=== PATIENT | female | born 1975 | race Caucasian/White ===

== ENCOUNTER → 2018-01-04 09:04 | Outpatient (CLI) | payer BC, SELFPAY ==
[2018-01-04 10:36] LABS: Microalbumin,Random Urine 34.5 mg/L (NO RANGE EST.); Microalbumin:Creatinine Ratio 14.7 mg/g CRE (<30 mg/g CRE)
[2018-01-04 10:58] LABS: ALB/GLOB Ratio 0.9 RATIO (0.9-2.4); AST(SGOT) 45 U/L (15-37); Alanine Aminotransfer ALT/SGPT 60 U/L (13-56); Albumin, Serum 3.9 g/dL (3.2-5.0); Alkaline Phosphatase 107 U/L (45-117); Anion Gap 8 (5-15); BUN 10 mg/dL (7-18); BUN/Creat Ratio 10.2 RATIO (10-20); Calcium,Total 8.7 mg/dL (8.5-10.1); Chloride 104 mmol/L (98-107); Cholesterol 216 mg/dL (200); Creatinine, Serum 0.98 mg/dL (0.55-1.02); EST Glomerular Filtration Rate 66 mL/min (>60); Est Glom Filt Rate - Afr Amer 79 mL/min (>60); Globulin 4.4 g/dL (2.2-4.2); Glucose 126 mg/dL (74-106); High Density Lipoprotein 32 mg/dL; Potassium 3.7 mmol/L (3.5-5.1); Protein, Total 8.3 g/dL (6.4-8.2); Sodium Level 138 mmol/L (136-145); T4 Free Direct 0.92 ng/dL (0.76-1.46); Thyroid Stim Hormone (TSH) 2.66 uIU/mL (0.358-3.74); Triglycerides 229 mg/dL; Very Low Density Lipoprotein 46 mg/dL (5-40)
== END ==
PROVIDERS: Family Provider Family Medicine; PCP Family Medicine; Visit Provider Family Medicine
DX: I10 Essential (primary) hypertension (principal); E03.9 Hypothyroidism, unspecified
CPT/HCPCS: 36415; 80053; 80061; 82043; 82570; 84439; 84443

== ENCOUNTER 2018-03-29 08:46 | Emergency (ER) | payer BC, SELFPAY ==
[2018-03-29 08:47] VITALS: BP 166/105; PULSE 93; RESP 18; TEMP 37; O2SAT 99; BMI 45.4
--- NOTE | 2018-03-29 09:00 | EKG12_ITS ---
Test Reason : CHEST OTHER Blood Pressure : / mmHG Vent. Rate : 078 BPM Atrial Rate : 078 BPM P-R Int : 148 ms QRS Dur : 094 ms QT Int : 394 ms P-R-T Axes : 019 -36 -03 degrees QTc Int : 449 ms Normal sinus rhythm Left axis deviation ,LAHB Abnormal ECG Confirmed by RAYMOND LUQUE ([id number]), supervising editor trailer REAGAN SMITH ([id number]) on 04/02/2018 2:30:13 PM Referred By: GERALDINE Confirmed By:RAYMOND LUQUE
--- NOTE | 2018-03-29 09:00 | ED.VISSUMM ---
- ER Visit Summary Date of Service: 03/29/18 Chief Complaint: Numbness and tingling left arm, reflux History of Present Illness: The patient is a 42 F who states for the past 2 weeks she has had numbness and tingling of the left arm. It goes from the shoulder all the way down. She saw her primary care doctor on Sunday this week but did not mention it to him. She has taken nothing for it. Over the past 2 days she has had reflux with burning and a brash taste in the back of her mouth. She has some intermittent dull pains in her chest. She denies any fevers. No neck pain. Physical Examination: Vital signs reviewed. HEENT exam unremarkable. Spine is nontender. Heart is regular rate and rhythm without murmurs. Lungs are clear to auscultation. Abdomen is soft and nontender. Extremities reveal no edema. Skin exam normal. Neurologic exam normal. Test Results: EKG is normal sinus rhythm with a rate of 78. No ST changes. Emergency Department Course and Treatment: Patient will be given a GI cocktail here. No signs of any cardiac issues. She may have a little bit of radiculopathy causing the paresthesias. Patient will be treated with prednisone at home. Also give her Prilosec. She will follow up with her PCP Treatment Plan: [] Disposition: Discharge Impression: GERD, left arm paresthesias This note was generated with Player[employer] dictation software. It may contain incorrect words, spelling, and punctuation that were not noted in review of the chart prior to signing ED Disposition - Plan for ED Patient: Chief Complaint: Chest Other Referrals: Pk Amor MD [Primary Care Provider] -
--- NOTE | 2018-03-29 09:12 | NURSING ---
NO OLD EKGS
--- NOTE | 2018-03-29 09:27 | ED.DEP ---
ED Disposition - Plan for ED Patient: Disposition: Home or Assisted Living Chief Complaint: Chest Other Instructions: ED GERD, ED Paraesthesias Prescriptions: Omeprazole [Prilosec] 20 mg PO DAILY #30 cap Prednisone [Deltasone] 40 mg PO DAILY #10 tab Referrals: Pk Amor MD [Primary Care Provider] -
[2018-03-29] MEDS: Mag Hydrox/Al Hydrox/Simeth 30 ML UDC PO (09:37)
[2018-03-29 10:01] VITALS: BP 128/77; PULSE 61; RESP 15; O2SAT 97
== END 2018-03-29 10:03 | disposition home or self-care (01) ==
PROVIDERS: Emergency Provider Emergency Medicine; Family Provider Family Medicine; PCP Family Medicine
DX: K21.9 Gastro-esophageal reflux disease without esophagitis (principal); R20.2 Paresthesia of skin; Z86.79 Personal history of other diseases of the circulatory system; Z86.39 Personal history of other endocrine, nutritional and metabolic disease
CPT/HCPCS: 93005; 99283

== ENCOUNTER → 2018-04-22 11:33 | Outpatient (CLI) | payer BC, SELFPAY ==
[2018-04-22 14:19] LABS: Hemoglobin A1c 6.8 % (4.2-6.3)
[2018-04-22 14:20] LABS: ALB/GLOB Ratio 0.9 RATIO (0.9-2.4); AST(SGOT) 33 U/L (15-37); Alanine Aminotransfer ALT/SGPT 53 U/L (13-56); Albumin, Serum 3.6 g/dL (3.2-5.0); Alkaline Phosphatase 110 U/L (45-117); Anion Gap 8 (5-15); BUN 12 mg/dL (7-18); BUN/Creat Ratio 12.5 RATIO (10-20); Calcium,Total 8.9 mg/dL (8.5-10.1); Chloride 101 mmol/L (98-107); Cholesterol 231 mg/dL (200); Creatinine, Serum 0.96 mg/dL (0.55-1.02); EST Glomerular Filtration Rate 68 mL/min (>60); Est Glom Filt Rate - Afr Amer 82 mL/min (>60); Glucose 105 mg/dL (74-106); High Density Lipoprotein 38 mg/dL; Potassium 3.9 mmol/L (3.5-5.1); Protein, Total 7.6 g/dL (6.4-8.2); Sodium Level 139 mmol/L (136-145); Triglycerides 217 mg/dL; Very Low Density Lipoprotein 43 mg/dL (5-40)
== END ==
PROVIDERS: Family Provider Family Medicine; PCP Family Medicine; Referring Provider Family Medicine; Visit Provider Family Medicine
DX: E78.00 Pure hypercholesterolemia, unspecified (principal); R74.0 Nonspecific elevation of levels of transaminase and lactic acid dehydrogenase [LDH]; I10 Essential (primary) hypertension
CPT/HCPCS: 36415; 80053; 80061; 83036

== ENCOUNTER → 2018-06-25 14:21 | Outpatient (CLI) | payer BC, SELFPAY ==
--- NOTE | 2018-06-25 14:30 | MRI_ITS ---
STUDY: MRI BRAIN WITH AND WITHOUT CONTRAST REASON FOR EXAM: Female, 42 years old. Optic neuritis, headache and visual changes right TECHNIQUE: Standardized multiplanar fat and water weighted pulse sequences were obtained. 10 ml of Gadavist contrast material was administered intravenously for the contrast portion of the examination. Small [id number] high-resolution images of the orbits were also obtained. COMPARISON: None. FINDINGS: Normal size of the ventricles and extra-axial spaces for the patient's age. Normal white matter tracts of the supratentorial brain. There is no evidence for recent intracranial ischemia or other cause of cytotoxic edema on diffusion weighted imaging (DWI). The optic nerve on the right appears slightly larger and somewhat ill-defined demonstrating slight T2 lengthening and possible enhancement. The optic chiasm and tracts appear normal. The globes appear normal as are the retrobulbar structures otherwise. There are prominent perivascular spaces (PVS) involving the basal ganglia. Normal thalami. There is no extra-axial fluid accumulation. Normal flow voids within the major intracranial circulation suggesting patency by spin echo criteria. Normal venous enhancement. There is no enhancing intra-axial or extra-axial abnormality. Normal sella turcica, pituitary gland, infundibular stalk, optic chiasm and hypothalamus. Normal tectal plate and pineal gland. Normal midbrain, layton and medulla. Normal cerebellum. Normal basal cisterns. Normal bilateral temporal bones. Normal bilateral internal auditory canals. No demonstrated orbital abnormality, within the constraints of a routine brain study. Normal visualized paranasal sinuses. Normal calvarium and skull base. Normal visualized soft tissue structures. Normal visualized upper cervical spine. MRI/Brain W/WO Contrast IMPRESSION: Probable optic neuritis on the right otherwise unremarkable MR brain and orbits Electronically Signed: Beto Forman MD at 16:11 EST , Service support ,
== END ==
PROVIDERS: Family Provider Family Medicine; PCP Family Medicine; Referring Provider Family Medicine; Visit Provider Family Medicine
DX: H46.00 Optic papillitis, unspecified eye (principal)
CPT/HCPCS: 70553; A9585

== ENCOUNTER → 2018-06-26 14:34 | Outpatient (CLI) | payer BC, SELFPAY ==
[2018-06-26 14:48] VITALS: BP 139/89; PULSE 77; RESP 16; TEMP 36.6; O2SAT 96; BMI 41.8
[2018-06-26 15:57] LABS: AST(SGOT) 28 U/L (15-37); Alanine Aminotransfer ALT/SGPT 38 U/L (13-56); Alkaline Phosphatase 85 U/L (45-117); Anion Gap 8 (5-15); BUN 15 mg/dL (7-18); BUN/Creat Ratio 14.9 RATIO (10-20); CRP 5.73 mg/L (0.0-3.0); Calcium,Total 9.2 mg/dL (8.5-10.1); Chloride 104 mmol/L (98-107); Creatinine, Serum 1.01 mg/dL (0.55-1.02); EST Glomerular Filtration Rate 64 mL/min (>60); Est Glom Filt Rate - Afr Amer 77 mL/min (>60); Estimated Creatinine Clearance 62.66 ml/min; Globulin 3.9 g/dL (2.2-4.2); Glucose 80 mg/dL (74-106); Potassium 4.2 mmol/L (3.5-5.1); Protein, Total 7.9 g/dL (6.4-8.2); Sodium Level 139 mmol/L (136-145)
[2018-06-26 16:20] LABS: Absolute Lymphocyte Count 2.76 X10^3/ul (0.83-4.51); Basophil# 0.03 X10^3/uL; Basophil% 0.3 % (0-1); Eosinophil# 0.28 X10^3/uL; Eosinophils% 2.4 % (0-5); Hematocrit 45.9 % (37-47); Hemoglobin 15.1 g/dl (12.0-15.0); Lymphocyte # 2.76 X10^3/ul (4.0); Lymphocyte % 23.6 % (19-41); Mean Corp Hgb Conc 32.9 g/gl (32-36); Mean Corpuscular Volume 88.1 fL (81-99); Mean Platelet Vol. 10.2 fl (6.2-12.0); Monocyte# 0.56 X10^3/uL; Monocyte% 4.8 % (0-10); Neutrophil # 8.03 X10^3/uL (2.7-7.7); Neutrophil % 68.7 % (47-70); Platelet Count 311 K/mm3 (150-450); RBC Distribution Width CV 12.9 % (11.6-14.6); Red Blood Count 5.21 M/mm3 (4.2-5.4); White Blood Count 11.7 K/mm3 (4.4-11.0)
[2018-06-26 16:38] LABS: POSITIVE COUNT NO; POSITIVE DIFFERENTIAL NO; POSITIVE MORPHOLOGY NO
[2018-06-26 16:48] LABS: Erythrocyte Sedimentation Rate 21 mm/hr (0-20)
[2018-06-27 20:06] LABS: PROELU- Albumin, Urine 52.5 % (.); PROELU- Alpha-1-Globulin,Ur 2.3 % (.); PROELU- Beta Globulin, Ur 19.6 % (.); PROELU- Gamma Globulin, Ur 10.6 % (.)
[2018-06-28 19:07] LABS: PROEL- A/G Ratio 1.1 (0.7-1.7); PROEL- Albumin 3.9 g/dL (2.9-4.4); PROEL- Alpha-1 Globulin 0.2 g/dL (0.0-0.4); PROEL- Alpha-2 Globulin 0.5 g/dL (0.4-1.0); PROEL- Gamma Globulin 1.1 g/dL (0.4-1.8); PROEL- Globulin, Total 3.7 g/dL (2.2-3.9); PROEL- TOTAL PROTEIN 7.6 g/dL (6.0-8.5)
== END ==
PROVIDERS: Family Provider Family Medicine; PCP Family Medicine; Visit Provider Family Medicine
DX: H46.9 Unspecified optic neuritis (principal)
CPT/HCPCS: 96365; 80053; 84165; 84166; 85025; 85652; 86140; J7050; A4216; J2930

== ENCOUNTER → 2018-06-27 12:22 | Outpatient (CLI) | payer BC, SELFPAY ==
[2018-06-26 14:48] VITALS: BMI 41.8
[2018-06-27 12:38] VITALS: BP 150/89; PULSE 91; RESP 18; TEMP 37.4; O2SAT 95; BMI 41.8
== END ==
PROVIDERS: Family Provider Family Medicine; PCP Family Medicine; Referring Provider Family Medicine; Visit Provider Family Medicine
DX: H46.9 Unspecified optic neuritis (principal)
CPT/HCPCS: J7050; A4216; J2930

== ENCOUNTER → 2018-06-28 10:28 | Outpatient (CLI) | payer BC, SELFPAY ==
[2018-06-26 14:48] VITALS: BMI 41.8
[2018-06-27 12:38] VITALS: BMI 41.8
[2018-06-28 10:58] LABS: Lyme Ab Screen Interpretation REF LAB
[2018-06-28 11:07] VITALS: BP 134/79; PULSE 83; RESP 16; TEMP 37.2; O2SAT 95; BMI 40.7
[2018-06-28 14:50] LABS: Vitamin B12 285 pg/mL (211-911); Vitamin D,25 Hydroxy 10.5 ng/mL (29.95-100.01)
[2018-07-01 20:11] LABS: Angiotensin Convert Enzyme 17 U/L (14-82); Cytoplasmic Ab (C-ANCA) <1:20 titer (Neg:<1:20); SJOGREN'S Anti-SS-A test < 0.2 AI (0.0-0.9); SJOGREN'S Anti-SS-B test < 0.2 AI (0.0-0.9)
[2018-07-02 09:08] LABS: ANTINUCLEAR ANTIBODIES DIRECT Negative (Negative); Lyme Scn Total Ab w/Rflx <0.91 ISR (0.00-0.90); Perinuclear Ab (P-ANCA) <1:20 titer (Neg:<1:20)
== END ==
PROVIDERS: Psychiatry & Neurology Neurology; Family Provider Family Medicine; PCP Family Medicine; Referring Provider Family Medicine; Visit Provider Family Medicine
DX: H46.9 Unspecified optic neuritis (principal)
CPT/HCPCS: 96365; 36415; 82164; 82306; 82607; 86038; 86235; 86256; 86431; 86618; J7050; A4216; J2930

== ENCOUNTER 2018-06-29 10:30 | Outpatient (CLI) | payer BC, SELFPAY ==
[2018-06-27 12:38] VITALS: BMI 41.8
[2018-06-28 11:07] VITALS: BMI 40.7
[2018-06-29 10:52] VITALS: BP 146/98; PULSE 71; RESP 16; TEMP 37.2; O2SAT 97
[2018-06-29] MEDS: 0.9% NaCl Peripheral Flush Adult/Peds IV ×2 (10:55→12:32)
== END 2018-06-29 12:35 | disposition home or self-care (01) ==
LOC: MEDOUTP 10:30 → MS3 10:35
PROVIDERS: Family Provider Family Medicine; PCP Family Medicine; Referring Provider Family Medicine; Visit Provider Family Medicine
DX: Z45.2 Encounter for adjustment and management of vascular access device (principal)
CPT/HCPCS: 96365; A4216; J2930

== ENCOUNTER 2018-06-30 10:40 | Outpatient (CLI) | payer BC, SELFPAY ==
[2018-06-27 12:38] VITALS: BMI 41.8
[2018-06-28 11:07] VITALS: BMI 40.7
[2018-06-30 10:56] VITALS: BP 148/83; PULSE 74; RESP 18; TEMP 36.9; O2SAT 95
== END 2018-06-30 12:50 | disposition home or self-care (01) ==
LOC: MEDOUTP 10:40 → PCU 10:41
PROVIDERS: Family Provider Family Medicine; PCP Family Medicine; Referring Provider Family Medicine; Visit Provider Family Medicine
DX: H46.9 Unspecified optic neuritis (principal)
CPT/HCPCS: 96365; J2930

== ENCOUNTER → 2018-07-08 15:29 | Outpatient (CLI) | payer BC, SELFPAY ==
[2018-06-28 11:07] VITALS: BMI 40.7
--- NOTE | 2018-07-08 15:34 | MRI_ITS ---
STUDY: MRI CERVICAL SPINE WITH AND WITHOUT CONTRAST REASON FOR EXAM: Female, 42 years old. optic neuritis rt eye, muscle spasms, numbness left arm TECHNIQUE: Standardized fat and water weighted pulse sequences were obtained in the sagittal and axial following I.V. administration of 10 ml of Gadavist contrast material. COMPARISON: MRI of the thoracic spine July 08, 2018, MRI of the brain with and without contrast June 25, 2018 FINDINGS: Normal foramen magnum and brainstem-cervical cord junction. Normal craniovertebral junction. Normal anterior atlantoaxial articulation. Normal odontoid process. There is mild reversal the normal cervical lordosis. Vertebral body height is maintained. Mild degenerative endplate changes are noted. Bone marrow signal intensity is normal. C2-3: Normal endplates. Normal disc height, signal and morphology. Normal central canal and intervertebral neural foramina. C3-4: Normal endplates. Normal disc height, signal and morphology. Normal central canal and intervertebral neural foramina. C4-5: Small marginal osteophytes noted. There is uncovertebral joint hypertrophy bilaterally. Disc osteophyte complex with herniation that extends inferior to the C5 endplate demonstrates mild impression upon the ventral thecal sac asymmetric to the left with cervical cord contour abnormality but there is no evidence of significant central canal stenosis. AP diameter of the thecal sac measures 0.9 cm. Disc protrudes into the left neural foramen with severe left neural foraminal encroachment. The right neural foramen demonstrates mild encroachment. C5-6: Degenerative disc desiccation is noted. There is broad posterior disc osteophyte complex asymmetric to the right with uncovertebral joint hypertrophy. There is flattening of the ventral aspect of the thecal sac and cervical cord contour. AP diameter of the thecal sac is approximately 9 mm, a mild relative stenosis. There is mild to moderate encroachment upon the left neural foramen and right neural foramen. C6-7: Disc desiccation is noted. There is broad posterior paracentral disc bulging which mildly flattens ventral aspect of the thecal sac. AP diameter of the thecal sac is approximately 1 cm. There is no evidence of significant central canal stenosis. There does appear mild encroachment upon the neural foramina bilaterally. C7-T1: Posterior disc osteophyte complex demonstrates right paracentral asymmetry mildly distorting the contour of the thecal sac. There is no evidence of significant central canal stenosis. The neural foramina are patent. Normal cervical cord. No evidence of cord signal abnormality. No abnormal enhancement of the cervical cord. Normal visualized soft tissue structures. Incidental note made of prominent fluid in the sella consistent with that of diaphragmatic defect, empty sella. MRI/Spine Cervical W/WO Contrast IMPRESSION: * Degenerative spondylosis of the cervical spine. The most severe level is at C4-5 where disc herniates and protrudes into the left neural foramen with associated severe left neural foraminal encroachment. See above for details. * The cervical cord demonstrates no evident signal abnormality. There is no evidence of demyelination. No abnormal enhancement. Electronically Signed: Bettye Plasencia MD at 13:59 EST , Service support ,
--- NOTE | 2018-07-08 15:34 | MRI_ITS ---
STUDY: MRI THORACIC SPINE WITH AND WITHOUT CONTRAST REASON FOR EXAM: Female, 42 years old. MS optic neuritis rt eye, muscle spasms, numbness left arm TECHNIQUE: 10 ml of Gadavist was administered intravenously for the contrast portion of the examination. COMPARISON: MRI brain with and without contrast June 25, 2018 FINDINGS: Normal kyphosis of the thoracic spine. There is mild midthoracic dextroscoliosis. T1-2, T2-3, T3-4, T4-5, T5-6, T6-7, T7-8, T8-9, T9-10, T10-11, T11-12: Normal endplates. Normal disc hydration, heights and morphology of the corresponding intervertebral discs. Normal central canal and intervertebral neural foramina at the corresponding levels. Normal visualized thoracic cord. Normal conus medullaris that terminates at the . The soft tissue structures are unremarkable. There is no enhancing abnormality. MRI/Spine Thoracic W/WO Contrast IMPRESSION: Normal unenhanced and enhanced MRI examination of the thoracic spine. Mild midthoracic dextroscoliosis. No signs of demyelinating process on this exam. Another possible etiologies of optic neuritis that may be considered could include immune disease such as lupus. Again on this exam I see no signs of demyelinating disease such as multiple sclerosis, although multiple sclerosis still remains in the differential since it may be a first indication of disease. Electronically Signed: Bettye Plasencia MD at 13:31 EST , Service support ,
--- OUTSIDE RECORDS SUMMARY | 2018-10-10 08:02 | XMS RPT_ITS ---
:1975 Author Organization OHIP Support Name Relationship Address Phone [facility] Unavailable [address] + [place] [address] RETA, NAN Unavailable [address] + [place] [address] [facility] Unavailable [address] + [place] [phone] RETA, NAN Unavailable [address] + [place] [address] [facility] Unavailable [address] + [place] [address] RETA, NAN Unavailable [address] + [place] [address] [facility] Unavailable [address] + [place] [address] RETA, NAN Unavailable [address] + [place] [address] [facility] Unavailable [address] + [place] [address] RETA, NAN Unavailable [address] + [place] [address] [facility] Unavailable [address] + [place] [address] RETA, NAN Unavailable [address] + [place] [address] [facility] Unavailable [address] + [place] [address] RETA, NAN Unavailable [address] + [place] [address] [facility] Unavailable [address] + [place] [phone] RETA, NNA Unavailable [address] + [place] [address] [facility] Unavailable [address] + [place] [address] RETA, NAN Unavailable [address] + [place] [address] [facility] Unavailable [address] + [place] [address] RETA, NAN Unavailable [address] + [place] [address] [facility] Unavailable [address] + [place] [address] RETA, NAN Unavailable [address] + [place] [address] [facility] Unavailable [address] + [place] [address] RETA, NAN Unavailable [address] + [place] [address] [facility] Unavailable [address] + [place] [address] RETA, NAN Unavailable [address] + [place] [address] [facility] Unavailable [address] + [place] [phone] RETA, NAN Unavailable [address] [phone] [place] [address] Care Team Providers Name Role Phone Tana Gamble Attending Unavailable Tana Gamble Referring Unavailable Amor, Pk Primary Care Unavailable Tana Gamble Attending Unavailable Tana Gamble Referring Unavailable Amor, Pk Primary Care Unavailable Amor, Pk Attending Unavailable Amor, Pk Referring Unavailable Amor, Pk Primary Care Unavailable Amor, Pk Primary Care Unavailable Sky Lopez Attending Unavailable Amor, Pk Attending Unavailable Amor, Pk Referring Unavailable Amor, Pk Primary Care Unavailable Liu Zimmerman Attending Unavailable Liu Zimmerman Referring Unavailable Amor, Pk Primary Care Unavailable Amor, Pk Attending Unavailable Amor, Pk Referring Unavailable Amor, Pk Primary Care Unavailable Amor, Pk Attending Unavailable Amor, Pk Primary Care Unavailable Amor, Pk Attending Unavailable Amor, Pk Primary Care Unavailable Amor, Pk Attending Unavailable Amor, Pk Referring Unavailable Amor, Pk Primary Care Unavailable Amor, Pk Attending Unavailable Amor, Pk Referring Unavailable Amor, Pk Primary Care Unavailable Amor, Pk Attending Unavailable Amor, Pk Referring Unavailable Amor, Pk Primary Care Unavailable Amor, Pk Attending Unavailable Amor, Pk Referring Unavailable Amor, Pk Primary Care Unavailable Radha Nunez Attending Unavailable Amor, Pk Primary Care Unavailable PROBLEMS PROBLEMS DATE TYPE CONDITION / CODE ATTENDING STATUS SOURCE 07/26/2018 Unknown H46.9 - Unspecified Tye, Active [place] optic neuritis / [facility] H46.9(ICD-10) Hospital Repository 04/22/2018 Unknown E78.00 - Pure Amor, Pk Active [place] hypercholesterolemi Community a, unspecified / Hospital E78.00(ICD-10) Repository 04/22/2018 Unknown R74.0 - Nonspecific Amor, Pk Active [place] elevation of levels [facility] transaminase and Hospital lactic acid Repository dehydrogenase [LDH] / R74.0(ICD-10) PROCEDURES PROCEDURES No Procedure Records FoundRESULTS RESULTS SPINAL FLUID CELL Collected: 07/12/2018 Status: C Source: [place] COUNT+DIFF 11:05 AM [facility] HOSPITAL REPOSITORY TYPE CODE TESTS RESULT OUT OF RANGE REFERENCE UNITS LAB L200.2695 0.000-0.000 10 3/uL High TC CSF 0.001 Result Comment: This is the Total Number of Nucleated Cell Types in the Body Fluid. LAB L200.2750 0.000-0.000 10 3/uL High WBC,CSF 0.001 LAB L200.3000 Normal PATH REV Reviewed Result Comment: Acellular specimen. Huy Alexander M.D. 07/15/18 AMENDED REPORT 07/15/18 0959 PATH REV previously reported as: November follow LAB L200.3510 % BF Normal PMN WBC% 0.0 LAB L200.3515 % BF MN Normal WBC% 100.0 LAB L200.3520 10 3/uL BF MN Normal WBC# 0.001 LAB L200.3525 10 3/uL BF Normal PMN WBC# 0.000 LAB L200.2500 4 Normal TESTED TUBE # LAB L200.2600 Colorless CSF Normal Color COLORLESS LAB L200.2650 Clear Normal APPEARANCE CSF CLEAR LAB L200.2700 None seen /mm-3 0 Normal RBC,CSF Performed By: #### L200.0100 #### [facility] [address] [place], [address] GLUCOSE SPINAL FLUID Collected: 07/12/2018 Status: F Source: [place] 11:05 AM [facility] REPOSITORY Order Comment: Comments: #[id number] EBV PCR CSF Specimen Source? CSF TYPE CODE TESTS RESULT OUT OF RANGE REFERENCE UNITS LAB L501.0400 40-75 mg/dL Normal GLU SPINAL 61 FLD Performed By: #### L501.0400, L501.1600 #### [facility] [address] [place], [address] PROTEIN SPINAL FLUID Collected: 07/12/2018 Status: F Source: [place] 11:05 [facility] REPOSITORY Order Comment: Comments: #[id number] EBV PCR CSF Specimen Source? CSF TYPE CODE TESTS RESULT OUT OF RANGE REFERENCE UNITS LAB L501.1600 15.0-45.0 mg/dL Normal PROTEIN CSF 27.0 Performed By: #### L501.0400, L501.1600 #### [facility] [address] [place], [address] Observed: 07/12/2018 Status: F Source: [place] GRAM STAIN 11:05 [facility] REPOSITORY Gram Stain Centrifuged Specimen? Culture performed on centrifuged specimen Gram Stain No organisms seen No cells seen Performed By: #### M100.2000 #### [facility] [address] [place], [address] CYTOSPIN ON FLUID Observed: 07/12/2018 Status: F Source: [place] 11:05 [facility] REPOSITORY Patient: AMIE BARAJAS : 1975 (42/F) Acct Num: [id number] Phys: Tye RICCI[facility] Unit Num: [id number] Loc: RAD Specimen: [id number] Received: 07/12/18 - 1211 Spec Type: CYSPIN FL TISSUES 1 TISSUES: Cerebrospinal Fluid CYTOLOGY GROSS Received is 3 ml of clear colorless fluid labeled with the patient's name and and designated per the requisition as CSF. Submitted for cytology preparation. / 07/12/18 TC:4 CPT: 45427 CYTOLOGY STUDY Slides are reviewed. The specimen is paucicellular and consists of a few lymphocytes and monocytes. DIAGNOSIS CYTOLOGY Cerebrospinal fluid for cytology (cytospin): Negative for malignant cells. SJ:kristen 07/15/18 HEADER OPERATION: Lumbar puncture PRE-OP DIAGNOSIS: Possible MS TISSUE SUBMITTED: Cerebrospinal fluid for cytology Signed Huy Alexander MD 07/15/18 <signature on file> Performed By: #### PCYSPIN #### [facility] [address] [place], [address] CYTOLOGY, BODY FLUID / Collected: 07/12/2018 Status: F Source: [place] CSF 11:05 AM [facility] REPOSITORY Order Comment: Specimen Source: CSF TYPE CODE TESTS RESULT OUT OF RANGE REFERENCE UNITS LAB L350.1000 SEE Normal PATHOLOGY CYTOLOGY,BF REPORT /CSF Result Comment: Specimen submitted to Anatomical Pathology Department for testing. Performed By: #### L350.1000 #### [facility] [address] [place], [address] MYELIN BASIC PROTEIN, Collected: 07/12/2018 Status: F Source: [place] MBP 11:05 AM [facility] REPOSITORY TYPE CODE TESTS RESULT OUT OF REFERENCE UNITS RANGE LAB L804.2600 0.0-1.2 ng/mL High MBP 243196 2.0 Result Comment: Results for this test are for research purposes only by the assay's geospatial image analyst. The performance characteristics of this product have not been established. Results should not be used as a diagnostic procedure without confirmation of the diagnosis by another medically established diagnostic product or procedure. Performed By: #### L804.2600, L3400.1525, L3400.1645 #### [facility] (refer to report for specific site) refer to report for address and phone number CMV BY PCR Collected: 07/12/2018 Status: F [facility] TYPE CODE TESTS RESULT OUT OF RANGE REFERENCE UNITS LAB L3400.1525 Negative Normal CMV PCR Negative [id number] Result Comment: No Cytomegalovirus DNA Detected. This test was developed and its performance characteristics determined by [employer]. It has not been cleared or approved by the Food and Drug Administration. The FDA has determined that such clearance or approval is not necessary. Performed at: [address] [id number] Senior Drupal Developer: Pato Ruby MD, Phone: [phone] Performed By: #### L804.2600, L3400.1525, L3400.1645 #### [facility] (refer to report for specific site) refer to report for address and phone number HSV 1/2 BY PCR Collected: 07/12/2018 Status: F Source: [place] 11:05 AM [facility] REPOSITORY TYPE CODE TESTS RESULT OUT OF RANGE REFERENCE UNITS LAB L3400.1650 Negative Normal HSV 1 Negative BY PCR LAB L3400.1655 Negative Normal HSV 2 Negative BY PCR Result Comment: This test was developed and its performance characteristics determined by [employer]. It has not been cleared or approved by the U.S. Food and Drug Administration. The FDA has determined that such clearance or approval is not necessary. This test is used for clinical purposes. It should not be regarded as investigational or research. Performed By: #### L804.2600, L3400.1525, L3400.1645 #### [facility] (refer to report for specific site) refer to report for address and phone number MISCELLANEOUS LAB Collected: 07/12/2018 Status: F Source: [place] PROCEDURE 11:05 AM [facility] REPOSITORY Order Comment: Comments: #[id number] EBV PCR CSF Test(s) Ordered: #[id number] EBV PCR CSF TYPE CODE TESTS RESULT OUT OF RANGE REFERENCE UNITS LAB L801.1541 Normal [facility] LAB TEST Result Comment: TEST RESULT LIMITS Reinaldo-Arroyo Virus PCR Reinaldo-Arroyo Virus Real Time Negative Negative No Reinaldo-Arroyo Virus DNA Detected. This test was developed and its performance characteristics determined by [employer] [facility] [facility]. It has not been cleared or approved by the U.S. Food and Drug Administration. The FDA has determined that such clearance or approval is not necessary. This test is used for clinical purposes. It should not be regarded as investigational or research. TESTING PERFORMED AT [facility]. ORIGINAL REPORT ON FILE IN LAB CONTAINS ADDITIONAL TEST SITE INFORMATION. Performed By: #### L801.1541 #### [facility] [address] [place], [address] MISCELLANEOUS LAB Collected: 07/12/2018 Status: F Source: [place] PROCEDURE 3 11:05 AM [facility] REPOSITORY Order Comment: Comments: #[id number] EBV PCR CSF List Test(s) Ordered by Physician: #[id number] Lyme Disease, Western Blot, Cerebrospinal TYPE CODE TESTS RESULT OUT OF RANGE REFERENCE UNITS LAB L801.1545 Normal [facility] LAB TEST 3 Result Comment: TEST RESULT UNITS REF INTERVAL Lyme, Western Blot, CSF Lyme Ab IgG,WB,CSF P93 Ab. IgG Present Abnormal P66 Ab. IgG Absent P58 Ab. IgG Absent P45 Ab. IgG Absent P41 Ab. IgG Absent P39 Ab. IgG Absent P30 Ab. IgG Absent P28 Ab. IgG Absent P23 Ab. IgG Present Abnormal P18 Ab. IgG Absent Lyme IgG WB Interp. Negative Positive: 5 of the following bands: Borrelia-specific bands: P18,23,28,30,39,41,45,58,66, and 93. Negative: No bands or banding patterns which do not meet positive criteria. Note: For investigational use only. Lyme Ab IgM,WB,CSF P41 Ab. IgM Absent P39 Ab. IgM Absent P23 Ab. IgM Absent Lyme IgM WB Interp. Negative Note: An equivocal or positive EIA result followed by a negative Western Blot result is considered NEGATIVE. An equivocal or positive EIA result followed by a positive Western Blot is considered POSITIVE by the CDC. Positive: 2 of the following bands: 23,39 or 41 Negative: No bands or banding patterns which do not meet positive criteria. Criteria for positivity are those recommended by CDC/ASTPHLD. p23=Osp C, p39=kzltcoahf Criteria for positivity are those recommended by CDC/ASTPHLD. p23=Osp C, z84=tbdkgjthf TESTING PERFORMED AT [facility]. ORIGINAL REPORT ON FILE IN LAB CONTAINS ADDITIONAL TEST SITE INFORMATION. Performed By: #### L801.1545 #### [facility] [address] [place], [address] MISCELLANEOUS LAB Collected: 07/12/2018 Status: F Source: [place] PROCEDURE 2 11:05 AM [facility] REPOSITORY Order Comment: Comments: #[id number] EBV PCR CSF List Test(s) Ordered by Physician: #[id number] CALLIE LEVEL CSF TYPE CODE TESTS RESULT OUT OF RANGE REFERENCE UNITS LAB L801.1543 Normal [facility] LAB TEST 2 Result Comment: TEST RESULT LIMITS CALLIE, CSF 0.4 U/L 0.0 - 2.8 Results of this test are labeled for research purposes only by the assay's geospatial image analyst. The performance characteristics of this assay have not been established by the geospatial image analyst. The result should not be used for treatment or for diagnostic purposes without confirmation of the diagnosis by another medically established diagnostic product or procedure. The performance characteristics were determined by [facility]. TESTING PERFORMED AT [facility]. ORIGINAL REPORT ON FILE IN LAB CONTAINS ADDITIONAL TEST SITE INFORMATION. Performed By: #### L801.1543 #### [place] [facility] [address], [address] CBC W/DIFF, AUTOMATED Collected: 07/12/2018 Status: F Source: [place] 10:30 AM [facility] REPOSITORY TYPE CODE TESTS RESULT OUT OF RANGE REFERENCE UNITS LAB L100.1000 4.4-11.0 K/mm3 Normal WBC 8.4 LAB L100.1200 4.2-5.4 M/mm3 Normal RBC 5.25 LAB L100.1300 12.0-15.0 g/dl High HGB 15.4 LAB L100.1400 37-47 % Normal HCT 46.3 LAB L100.1500 81-99 fL Normal MCV 88.2 LAB L100.1600 27.0-32.0 pg Normal MCH 29.3 LAB L100.1700 32-36 g/gl Normal MCHC 33.3 LAB L100.1810 11.6-14.6 % Normal RDW CV 13.2 LAB L100.1820 35.1-43.9 fl Normal RDW SD 42.2 LAB L100.1900 150-450 K/mm3 Normal PLT 241 LAB L100.2000 6.2-12.0 fl Normal MPV 9.4 LAB L100.2100 47-70 % High NEUT% 75.3 LAB L100.2200 19-41 % Low LY% 17.6 LAB L100.2300 0-10 % Normal MONO% 5.7 LAB L100.2400 0-5 % Normal EO% 1.1 LAB L100.2500 0-1 % Normal BASO% 0.2 LAB L100.2550 0.0-0.9 % Normal IM GRAN % 0.100 Result Comment: IG% - Immature Granulocytes (promyelocytes, myelocytes and metamyelocytes) > 1% indicates that a LEFT SHIFT is Present. LAB L100.2620 2.0-7.7 X10 3/uL Normal Absolute Neut 6.3 LAB L100.2720 0.83-4.51 X10 3/ul Normal Absolute Lymph 1.48 Performed By: #### L100.0100 #### [facility] [address] [place], [address] GLUCOSE Collected: 07/12/2018 Status: F Source: CICERO 10:30 AM [facility] REPOSITORY TYPE CODE TESTS RESULT OUT OF RANGE REFERENCE UNITS LAB L501.0100 74-106 mg/dL Normal GLU 95 Result Comment: Please note revised GLUCOSE reference range effective 2017. Performed By: #### L501.0100 #### [facility] [address] [place], [address] OLIGOCLONAL BANDS PANEL Collected: 07/12/2018 Status: F Source: CICERO 10:30 AM [facility] REPOSITORY TYPE CODE TESTS RESULT OUT OF RANGE REFERENCE UNITS LAB L801.2230 Normal OLIG BAND REF LAB LAB L801.97538 . Normal OLIG BAND Comment COM Result Comment: Zero (0) oligoclonal bands were observed in the CSF. Interpretation: Criteria for Positivity: Four (4) or more oligoclonal bands observed only in the CSF have been shown to be most consistent with MS using our method. [Meryl , Morgan EL, Jewel BG, and Ari JA: Cerebrospinal Fluid Oligoclonal Bands in the Diagnosis of Multiple Sclerosis. Am J Clin Pathol 120(5):672-675, 2003]. Oligoclonal bands that are present only in the CSF have been associated with a variety of inflammatory brain diseases such as multiple sclerosis (MS), subacute encephalitis, neurosyphilis, etc. Increased IgG in the CSF is not specific for MS, but is an indication of chronic neural inflammation. Clinical correlation indicated. Approximately 2-3% of clinically confirmed MS patients show little or no evidence of oligoclonal bands in the CSF; however oligoclonal bands may develop as the disease progresses. Oligoclonal Banding testing performed using Isoelectric Focusing (IEF) and immunoblotting methodology. Performed at: - [facility] [id number] Senior Drupal Developer: Anselmo Bruno PhD, Phone: [phone] Performed By: #### L801.83484, L804.5418, Q7527.9536 #### [facility] (refer to report for specific site) refer to report for address and phone number IGG INDEX AND Collected: 07/12/2018 Status: F Source: [place] SYNTHESIS RATE 10:30 AM [facility] REPOSITORY TYPE CODE TESTS RESULT OUT OF RANGE REFERENCE UNITS LAB L804.5100 0.0-8.6 mg/dL Normal CSF IgG 1.5 LAB L804.5200 11-48 mg/dL Normal CSF ALBUMIN 13 LAB L804.5300 700-1600 mg/dL Normal IgG SERUM 846 LAB L804.5400 3.5-5.5 g/dL Normal SERUM ALBUMIN 4.9 LAB L804.5500 0.00-0.25 Normal CSF IGG/ALB 0.12 LAB L804.5600 0.0-0.7 Normal CSF IgG INDEX 0.7 LAB L804.5700 -9.9 TO +3.3 mg/day Normal CSF IgG SYN -.9 RAT LAB L804.5800 0-8 Normal CSF:SER ALB 3 IND Result Comment: Relationship to blood-brain barrier: Consistent with an intact barrier <9 Slight impairment 9 - 14 Moderate impairment 14 - 30 Severe impairment 30 - 100 Complete breakdown >100 Performed By: #### L801.98570, L804.5000, L3100.3450 #### [facility] (refer to report for specific site) refer to report for address and phone number PROTEIN ELECTROPH, S Collected: 07/12/2018 Status: F Source: [place] 10:30 AM [facility] REPOSITORY TYPE CODE TESTS RESULT OUT OF RANGE REFERENCE UNITS LAB L3100.3500 6.0-8.5 g/dL Normal PROTEIN,TOTAL 7.6 LAB L3100.3600 2.9-4.4 g/dL Normal ALBUMIN 4.3 LAB L3100.3700 0.0-0.4 g/dL Normal ALPHA-1 GLOBUL 0.2 LAB L3100.3800 0.4-1.0 g/dL Normal ALPHA-2 GLOBUL 0.9 LAB L3100.3900 0.7-1.3 g/dL Normal BETA GLOBULIN 1.3 LAB L3100.4000 0.4-1.8 g/dL Normal GAMMA GLOBULIN 0.8 LAB L3100.4110 Normal M-SPIKE Result Comment: Not Observed LAB L3100.4200 2.2-3.9 g/dL GLOBULIN, TOTAL Normal 3.3 LAB L3100.4300 0.7-1.7 A/G RATIO Normal 1.3 LAB L3100.4320 . INTERPRETATION Normal Comment Result Comment: Protein electrophoresis scan will follow via computer, mail, or millwright delivery. LAB L3100.4340 . Normal NOTE: Comment Result Comment: The SPE pattern appears essentially unremarkable. Evidence of monoclonal protein is not apparent. Performed By: #### L801.34607, L804.5000, L3100.3450 #### [facility] (refer to report for specific site) refer to report for address and phone number FLUORO GUIDED LUMBAR Observed: 07/12/2018 Status: F Source: [place] PUNCTURE 10:20 AM [facility] REPOSITORY [facility] Imaging Services [address] [place] [address] Fluoro Guided Lumbar Puncture MR#: [id number] Acct: [id number] Name: AMIE BARAJAS Rep #: [id number] : 1975 F 42 From: Pito Hagan MD PCP: Pk Amor MD Status: REG CLI Study: Fluoro Guided Lumbar Puncture Date of Exam: 07/12/18 Exam# [id number] Ordering Dr: Tana Gamble MD PROCEDURE: Fluoroscopic guided Lumbar Puncture. DATE: July 12, 2018. CLINICAL INDICATION: Possible multiple sclerosis. PHYSICIAN: Pito Hagan M.D. MEDICATIONS: 1% lidocaine administered subcutaneously for local anesthesia. ACCESS SITE: Lower posterior back. NEEDLE: 22-gauge spinal needle. SPECIMEN: Approximately 13 mL clear]CSF fluid. FLUOROSCOPY TIME (if supplied): (0:37) minutes/seconds COMPLICATIONS: None immediate. The risks, benefits, and alternatives to the procedure were explained to the patient. The specific risks of bleeding, infection, and neurovascular injury were detailed and accepted. Witnessed informed consent was obtained. The patient was placed on the fluoroscopic table in the prone position. The level for needle entry was determined and marked. The overlying skin was cleaned and prepped in the usual sterile fashion. 2% lidocaine was administered subcutaneously for local anesthesia. Under fluoroscopic guidance a 22-gauge spinal needle was advanced. The thecal sac was entered at the L2-L3 vertebral level. The inner stylet was removed. There was spontaneous flow of clear CSF fluid. The patient was placed in a reversed Trendelenburg position. Approximately 13 mL of cerebrospinal fluid was collected using gravity. The specimen was collected and submitted to the laboratory for further evaluation. The needle was withdrawn,. Hemostasis was achieved and a sterile dressing placed. The patient tolerated the procedure well without any immediate complications. The patient was placed supine with head elevated and returned to the floor in stable condition. RAD/Fluoro Guided Lumbar Puncture IMPRESSION: Successful fluoroscopic-guided lumbar puncture. Electronically Signed: Pito Hagan MD at 12:41 EST Tel [phone], Service support , CC: Felicitas Gamble MD; Pk Amor MD Pump Servicer Supervisor: Signed SPINE THORACIC W/WO Observed: 07/08/2018 Status: F Source: [place] CONTRAST 3:35 PM [facility] REPOSITORY [facility] Imaging Services [address] [place] [address] Spine Thoracic W/WO Contrast MR#: [id number] Acct: [id number] Name: AMIE BARAJAS Rep #: [id number] : 1975 F 42 From: Bettye Plasencia MD PCP: Pk Amor MD Status: REG CLI Study: Spine Thoracic W/WO Contrast Date of Exam: 07/08/18 Exam# [id number] Ordering Dr: Tana Gamble MD STUDY: MRI THORACIC SPINE WITH AND WITHOUT CONTRAST REASON FOR EXAM: Female, 42 years old. MS optic neuritis rt eye, muscle spasms, numbness left arm TECHNIQUE: 10 ml of Gadavist was administered intravenously for the contrast portion of the examination. COMPARISON: MRI brain with and without contrast June 25, 2018 FINDINGS: Normal kyphosis of the thoracic spine. There is mild midthoracic dextroscoliosis. T1-2, T2-3, T3-4, T4-5, T5-6, T6-7, T7-8, T8-9, T9-10, T10- 11, T11-12: Normal endplates. Normal disc hydration, heights and morphology of the corresponding intervertebral discs. Normal central canal and intervertebral neural foramina at the corresponding levels. Normal visualized thoracic cord. Normal conus medullaris that terminates at the . The soft tissue structures are unremarkable. There is no enhancing abnormality. MRI/Spine Thoracic W/WO Contrast IMPRESSION: Normal unenhanced and enhanced MRI examination of the thoracic spine. Mild midthoracic dextroscoliosis. No signs of demyelinating process on this exam. Another possible etiologies of optic neuritis that may be considered could include immune disease such as lupus. Again on this exam I see no signs of demyelinating disease such as multiple sclerosis, although multiple sclerosis still remains in the differential since it may be a first indication of disease. Electronically Signed: [place] Plasencia MD at 13:31 EST , Service support , CC: Felicitas Gamble MD; Pk Amor MD Pump Servicer Supervisor: Signed SPINE CERVICAL W/WO Observed: 07/08/2018 Status: F Source: [place] CONTRAST 3:35 PM [facility] REPOSITORY [facility] Imaging Services [address] [place] [address] Spine Cervical W/WO Contrast MR#: [id number] Acct: [id number] Name: AMIE BARAJAS Rep #: [id number] : 1975 F 42 From: Bettye Plasecnia MD PCP: Pk Amor MD Status: REG CLI Study: Spine Cervical W/WO Contrast Date of Exam: 07/08/18 Exam# [id number] Ordering Dr: Tana Gamble MD STUDY: MRI CERVICAL SPINE WITH AND WITHOUT CONTRAST REASON FOR EXAM: Female, 42 years old. optic neuritis rt eye, muscle spasms, numbness left arm TECHNIQUE: Standardized fat and water weighted pulse sequences were obtained in the sagittal and axial following I.V. administration of 10 ml of Gadavist contrast material. COMPARISON: MRI of the thoracic spine July 08, 2018, MRI of the brain with and without contrast June 25, 2018 FINDINGS: Normal foramen magnum and brainstem-cervical cord junction. Normal craniovertebral junction. Normal anterior atlantoaxial articulation. Normal odontoid process. There is mild reversal the normal cervical lordosis. Vertebral body height is maintained. Mild degenerative endplate changes are noted. Bone marrow signal intensity is normal. C2-3: Normal endplates. Normal disc height, signal and morphology. Normal central canal and intervertebral neural foramina. C3-4: Normal endplates. Normal disc height, signal and morphology. Normal central canal and intervertebral neural foramina. C4-5: Small marginal osteophytes noted. There is uncovertebral joint hypertrophy bilaterally. Disc osteophyte complex with herniation that extends inferior to the C5 endplate demonstrates mild impression upon the ventral thecal sac asymmetric to the left with cervical cord contour abnormality but there is no evidence of significant central canal stenosis. AP diameter of the thecal sac measures 0.9 cm. Disc protrudes into the left neural foramen with severe left neural foraminal encroachment. The right neural foramen demonstrates mild encroachment. C5-6: Degenerative disc desiccation is noted. There is broad posterior disc osteophyte complex asymmetric to the right with uncovertebral joint hypertrophy. There is flattening of the ventral aspect of the thecal sac and cervical cord contour. AP diameter of the thecal sac is approximately 9 mm, a mild relative stenosis. There is mild to moderate encroachment upon the left neural foramen and right neural foramen. C6-7: Disc desiccation is noted. There is broad posterior paracentral disc bulging which mildly flattens ventral aspect of the thecal sac. AP diameter of the thecal sac is approximately 1 cm. There is no evidence of significant central canal stenosis. There does appear mild encroachment upon the neural foramina bilaterally. C7-T1: Posterior disc osteophyte complex demonstrates right paracentral asymmetry mildly distorting the contour of the thecal sac. There is no evidence of significant central canal stenosis. The neural foramina are patent. Normal cervical cord. No evidence of cord signal abnormality. No abnormal enhancement of the cervical cord. Normal visualized soft tissue structures. Incidental note made of prominent fluid in the sella consistent with that of diaphragmatic defect, empty sella. MRI/Spine Cervical W/WO Contrast IMPRESSION: * Degenerative spondylosis of the cervical spine. The most severe level is at C4-5 where disc herniates and protrudes into the left neural foramen with associated severe left neural foraminal encroachment. See above for details. * The cervical cord demonstrates no evident signal abnormality. There is no evidence of demyelination. No abnormal enhancement. Electronically Signed: Bettye Plasencia MD at 13:59 EST , Service support , CC: Felicitas Gamble MD; Pk Amor MD Pump Servicer Supervisor: Signed MISCELLANEOUS LAB Collected: 06/28/2018 Status: F Source: [place] PROCEDURE 11:01 AM [facility] REPOSITORY Order Comment: Comments: [id number] Neuromyelitis Optica, IgG Autoantibodie Test(s) Ordered: [id number] Neuromyelitis Optica, IgG Autoantibodie TYPE CODE TESTS RESULT OUT OF RANGE REFERENCE UNITS LAB L801.1541 Normal [facility] LAB TEST Result Comment: TEST RESULT UNITS REF INTERVAL NMO IgG Autoantibodies <1.5 U/mL 0.0 - 3.0 NEGATIVE: 0.0 - 3.0 POSITIVE: >3.0 TESTING PERFORMED AT [facility]. ORIGINAL REPORT ON FILE IN LAB CONTAINS ADDITIONAL TEST SITE INFORMATION. Performed By: #### L801.1541 #### [facility] [address] [place], [address] RHEUMATOID FACTOR Collected: 06/28/2018 Status: F Source: [place] 10:54 AM [facility] REPOSITORY TYPE CODE TESTS RESULT OUT OF RANGE REFERENCE UNITS LAB L505.7010 <15 IU/mL Normal RHEUMATOID FAC 11.0 Performed By: #### L505.7010 #### [facility] [address] [place], [address] VITAMIN B12 Collected: 06/28/2018 Status: F Source: [place] 10:54 AM [facility] REPOSITORY TYPE CODE TESTS RESULT OUT OF RANGE REFERENCE UNITS LAB L503.0105 211-911 pg/mL Normal Vitamin B12 285 Performed By: #### L503.0105, L506.1000 #### [facility] [address] [place], [address] VITAMIN D,25 HYDROXY Collected: 06/28/2018 Status: F Source: [place] 10:54 AM [facility] REPOSITORY TYPE CODE TESTS RESULT OUT OF REFERENCE UNITS RANGE LAB L506.1000 29.95-100.01 ng/mL Low Vitamin D 10.5 25-OH Result Comment: Vitamin D 25(OH) Status Range Deficiency <20 ng/mL (50nmol/L) Insuffciency 20 - 30 ng/mL (50 - 75 nmol/L) Sufficiency 30 - 100 ng/mL (75 - 250 nmol/L) Toxicity >100 ng/mL (>250 nmol/L) Performed By: #### L503.0105, L506.1000 #### [facility] [address] [place], [address] ANGIOTENSIN CONVERT Collected: 06/28/2018 Status: F Source: [place] ENZYME 10:54 AM [facility] REPOSITORY TYPE CODE TESTS RESULT OUT OF RANGE REFERENCE UNITS LAB L3100.6900 14-82 U/L Normal CALLIE [id number] 17 Performed By: #### L3100.6900, L3300.1200, L7000.5300 #### [facility] (refer to report for specific site) refer to report for address and phone number ANCA Collected: 06/28/2018 Status: F Source: [place] 10:54 AM [facility] REPOSITORY TYPE CODE TESTS RESULT OUT OF RANGE REFERENCE UNITS LAB L3300.1225 Neg:<1:20 titer CYTOPLASMIC Normal Ab <1:20 LAB L3300.1250 Neg:<1:20 titer PERINUCLEAR Normal Ab <1:20 Result Comment: The presence of positive fluorescence exhibiting P-ANCA or C-ANCA patterns alone is not specific for the diagnosis of Joseph's Granulomatosis (WG) or microscopic polyangiitis. Decisions about treatment should not be based solely on ANCA IFA results. The International ANCA Group Consensus recommends follow up testing of positive sera with both WA- 3 and MPO-ANCA enzyme immunoassays. As many as 5% serum samples are positive only by EIA. Ref. AM J Clin Pathol 1999;111:507-513. LAB L3300.1285 Neg:<1:20 titer Normal Atypical pANCA <1:20 Result Comment: The atypical pANCA pattern has been observed in a significant percentage of patients with ulcerative colitis, primary sclerosing cholangitis and autoimmune hepatitis. Performed By: #### L3100.6900, L3300.1200, L7000.5300 #### [facility] (refer to report for specific site) refer to report for address and phone number LYME SCREEN W/REFLEX Collected: 06/28/2018 Status: F Source: [place] WB 10:54 AM [facility] REPOSITORY TYPE CODE TESTS RESULT OUT OF RANGE REFERENCE UNITS LAB L7000.5400 0.00-0.90 ISR Normal LYME SCN <0.91 AB Result Comment: Negative <0.91 Equivocal 0.91 - 1.09 Positive >1.09 Performed at: [facility] [id number] Senior Drupal Developer: Anselmo Bruno PhD, Phone: [phone] LAB L6428.4742 Normal LYME SCN REF INTERP LAB Performed By: #### L3100.6900, L3300.1200, L7000.5300 #### [facility] (refer to report for specific site) refer to report for address and phone number ANTINUCLEAR ANTIBODIES Collected: 06/28/2018 Status: F Source: [place] DIRECT 10:54 AM [facility] REPOSITORY TYPE CODE TESTS RESULT OUT OF RANGE REFERENCE UNITS LAB L3100.5477 Negative Normal Negative KING-DIRECT Result Comment: Performed at: - [facility] [address] [id number] Senior Drupal Developer: Anselmo Bruno PhD, Phone: [phone] Performed By: #### L3100.5475, L3100.9100 #### [facility] (refer to report for specific site) refer to report for address and phone number SJOGREN'S ANTIBODIES Collected: 06/28/2018 Status: F Source: [place] A/B 10:54 AM [facility] REPOSITORY TYPE CODE TESTS RESULT OUT OF RANGE REFERENCE UNITS LAB L3100.9200 0.0-0.9 AI Normal Anti-SS-A < 0.2 LAB L3100.9300 0.0-0.9 AI Normal Anti-SS-B < 0.2 Performed By: #### L3100.5475, L3100.9100 #### [facility] (refer to report for specific site) refer to report for address and phone number COMPREHENSIVE METABOLIC Collected: 06/26/2018 Status: F Source: [place] PROFIL 3:02 PM [facility] REPOSITORY TYPE CODE TESTS RESULT OUT OF RANGE REFERENCE UNITS LAB L501.0100 74-106 mg/dL Normal GLU 80 Result Comment: Please note revised GLUCOSE reference range effective 2017. LAB L501.1000 7-18 mg/dL Normal BUN 15 LAB L501.1100 0.55-1.02 mg/dL Normal CREAT,SERUM 1.01 Result Comment: The validity of the calculated GFR AND GFRAA in patients over 70 years has not been determined. Clinical correlation is essential. LAB L501.1110 >60 mL/min Normal EST GFR 64 Result Comment: Non- GFR Calc LAB L501.1115 >60 mL/min Normal EST GFR - AA 77 Result Comment: GFR Calc LAB L501.1255 ml/min Normal Estimated CRCL 62.66 LAB L501.1300 10-20 RATIO Normal BUN/CRE 14.9 LAB L501.1500 6.4-8. g/dL Normal 2 T PROT 7.9 LAB L501.1800 3.2-5. g/dL Normal 0 ALB 4.0 LAB L501.1950 2.2-4. g/dL Normal 2 GLOB 3.9 LAB L501.2000 0.9-2. RATIO Normal 4 A/G 1.0 LAB L501.2200 8.5-10 mg/dL Normal .1 CA 9.2 LAB L501.4100 15-37 U/L Normal AST 28 LAB L501.4305 45-117 U/L Normal ALK P 85 LAB L501.4405 13-56 U/L Normal ALT 38 LAB L501.4600 0.20-1 mg/dL Normal .00 T BILI 0.30 LAB L501.5300 136-14 mmol/L Normal 5 NA 139 LAB L501.5600 3.5-5. mmol/L Normal 1 K 4.2 LAB L501.5900 98-107 mmol/L Normal CL 104 LAB L501.6100 21.0-3 mmol/L Normal 2.0 CO2 27.0 LAB L501.6200 5-15 Normal GAP 8 Performed By: #### L500.4050, L100.0100, L101.9900 #### [facility] [address] [place], [place] [address]all [facility] [place], [address] #### L3600.4000, L3100.3450 #### [facility] (refer to report for specific site) refer to report for address and phone number CBC W/DIFF, AUTOMATED Collected: 06/26/2018 Status: F Source: [place] 3:02 PM [facility] REPOSITORY TYPE CODE TESTS RESULT OUT OF RANGE REFERENCE UNITS LAB L100.1000 4.4-11.0 K/mm3 High WBC 11.7 LAB L100.1200 4.2-5.4 M/mm3 Normal RBC 5.21 LAB L100.1300 12.0-15.0 g/dl High HGB 15.1 LAB L100.1400 37-47 % Normal HCT 45.9 LAB L100.1500 81-99 fL Normal MCV 88.1 LAB L100.1600 27.0-32.0 pg Normal MCH 29.0 LAB L100.1700 32-36 g/gl Normal MCHC 32.9 LAB L100.1810 11.6-14.6 % Normal RDW CV 12.9 LAB L100.1820 35.1-43.9 fl Normal RDW SD 41.0 LAB L100.1900 150-450 K/mm3 Normal PLT 311 LAB L100.2000 6.2-12.0 fl Normal MPV 10.2 LAB L100.2100 47-70 % Normal NEUT% 68.7 LAB L100.2200 19-41 % Normal LY% 23.6 LAB L100.2300 0-10 % Normal MONO% 4.8 LAB L100.2400 0-5 % Normal EO% 2.4 LAB L100.2500 0-1 % Normal BASO% 0.3 LAB L100.2550 0.0-0.9 % Normal IM GRAN % 0.200 Result Comment: IG% - Immature Granulocytes (promyelocytes, myelocytes and metamyelocytes) > 1% indicates that a LEFT SHIFT is Present. LAB L100.2620 2.0-7.7 X10 3/uL High Absolute Neut 8.0 LAB L100.2720 0.83-4.51 X10 3/ul Normal Absolute Lymph 2.76 Performed By: #### L500.4050, L100.0100, L101.9900 #### [facility] [place], [address] #### L3600.4000, L3100.3450 #### [facility] (refer to report for specific site) refer to report for address and phone number ERYTHROCYTE SED RATE Collected: 06/26/2018 Status: F Source: [place] 3:02 PM [facility] REPOSITORY TYPE CODE TESTS RESULT OUT OF RANGE REFERENCE UNITS LAB L102.0000 0-20 mm/hr High SED RATE 21 Performed By: #### L500.4050, L100.0100, L101.9900 #### [facility] [address] [facility]. [place], [place], [address] #### L3600.4000, L3100.3450 #### [facility] (refer to report for specific site) refer to report for address and phone number PROTEIN ELECTRO.UR-RANDOM Collected: Status: F Source: [place] 06/26/2018 3:02 PM [facility] REPOSITORY TYPE CODE TESTS RESULT OUT OF RANGE REFERENCE UNITS LAB L3600.4100 Not Estab. mg/dL Normal 7.0 PROTEIN,UR LAB L3600.4200 . % Normal 52.5 ALBUMIN,UR LAB L3600.4300 . % Normal 2.3 HZQXD-2-VPBN ,U LAB L3600.4400 . % Normal 15.0 FTWQC-5-RETM ,U LAB L3600.4500 . % Normal BETA 19.6 GLOB,U LAB L3600.4600 . % Normal GAMMA 10.6 GLOB,U LAB L3600.4720 Normal M-SPIKE,U Result Comment: NOT OBSERVED LAB L3600.4800 . Normal NOTE Comment Result Comment: Protein electrophoresis scan will follow via computer, mail, or millwright delivery. Performed at: [facility] [employer] [id number] Senior Drupal Developer: Anselmo Bruno PhD, Phone: [phone] Performed By: #### L500.4050, L100.0100, L101.9900 #### [facility] [address] [place], [address] #### L3600.4000, L3100.3450 #### [facility] (refer to report for specific site) refer to report for address and phone number PROTEIN ELECTROPH, S Collected: 06/26/2018 Status: F Source: [place] 3:02 PM [facility] REPOSITORY TYPE CODE TESTS RESULT OUT OF RANGE REFERENCE UNITS LAB L3100.3500 6.0-8.5 g/dL Normal PROTEIN,TOTAL 7.6 LAB L3100.3600 2.9-4.4 g/dL Normal ALBUMIN 3.9 LAB L3100.3700 0.0-0.4 g/dL Normal ALPHA-1 GLOBUL 0.2 LAB L3100.3800 0.4-1.0 g/dL Normal ALPHA-2 GLOBUL 0.5 LAB L3100.3900 0.7-1.3 g/dL High BETA GLOBULIN 2.0 LAB L3100.4000 0.4-1.8 g/dL Normal GAMMA GLOBULIN 1.1 LAB L3100.4110 Normal M-SPIKE Result Comment: Not Observed LAB L3100.4200 2.2-3.9 g/dL GLOBULIN, TOTAL Normal 3.7 LAB L3100.4300 0.7-1.7 A/G RATIO Normal 1.1 LAB L3100.4320 . INTERPRETATION Normal Comment Result Comment: Protein electrophoresis scan will follow via computer, mail, or millwright delivery. LAB L3100.4340 . Normal NOTE: Comment Result Comment: The pattern contains a band of restricted mobility in the zone where hemolysis artifacts typically migrate. The sample tested was hemolyzed. Depending on clinical circumstances, future studies may include resubmission of serum for repeat protein electrophoresis, or more diagnostic tests such as serum immunoelectrophoresis or urine electrophoresis. Performed at: [facility] [address] [id number] Senior Drupal Developer: Anselmo Bruno PhD, Phone: [phone] Performed By: #### L500.4050, L100.0100, L101.9900 #### [facility] [address] [facility]. [place], [place], [address] #### L3600.4000, L3100.3450 #### [facility] (refer to report for specific site) refer to report for address and phone number CRP Collected: 06/26/2018 Status: F Source: [place] 3:02 PM [facility] REPOSITORY TYPE CODE TESTS RESULT OUT OF RANGE REFERENCE UNITS LAB L501.6710 0.0-3.0 mg/L High 5.73 C-REACTIVE PROT Result Comment: C-Reactive Protein (CRP) provides useful information for the diagnosis, therapy and monitoring of inflammatory processes and associated diseases. For the evaluation of Relative Risk for Cardiovascular Disease, a High Sensitivity CRP (HSCRP) should be ordered. Performed By: #### L501.6710 #### [facility] [address] [place] [address]. [place], [address] BRAIN W/WO CONTRAST Observed: 06/25/2018 Status: F Source: [place] 2:30 PM [facility] REPOSITORY [facility] Imaging Services [address] [place] [id number] Brain W/WO Contrast MR#: [id number] Acct: [id number] Name: AMIE BARAJAS Rep #: [id number] : 1975 F 42 From: Beto Forman MD PCP: Pk Amor MD Status: REG CLI Study: Brain W/WO Contrast Date of Exam: 06/25/18 Exam# [id number] Ordering Dr: Pk Amor MD STUDY: MRI BRAIN WITH AND WITHOUT CONTRAST REASON FOR EXAM: Female, 42 years old. Optic neuritis, headache and visual changes right TECHNIQUE: Standardized multiplanar fat and water weighted pulse sequences were obtained. 10 ml of Gadavist contrast material was administered intravenously for the contrast portion of the examination. Small gyipu-tu-pghf high-resolution images of the orbits were also obtained. COMPARISON: None. FINDINGS: Normal size of the ventricles and extra-axial spaces for the patient's age. Normal white matter tracts of the supratentorial brain. There is no evidence for recent intracranial ischemia or other cause of cytotoxic edema on diffusion weighted imaging (DWI). The optic nerve on the right appears slightly larger and somewhat ill-defined demonstrating slight T2 lengthening and possible enhancement. The optic chiasm and tracts appear normal. The globes appear normal as are the retrobulbar structures otherwise. There are prominent perivascular spaces (PVS) involving the basal ganglia. Normal thalami. There is no extra-axial fluid accumulation. Normal flow voids within the major intracranial circulation suggesting patency by spin echo criteria. Normal venous enhancement. There is no enhancing intra-axial or extra-axial abnormality. Normal sella turcica, pituitary gland, infundibular stalk, optic chiasm and hypothalamus. Normal tectal plate and pineal gland. Normal midbrain, layton and medulla. Normal cerebellum. Normal basal cisterns. Normal bilateral temporal bones. Normal bilateral internal auditory canals. No demonstrated orbital abnormality, within the constraints of a routine brain study. Normal visualized paranasal sinuses. Normal calvarium and skull base. Normal visualized soft tissue structures. Normal visualized upper cervical spine. MRI/Brain W/WO Contrast IMPRESSION: Probable optic neuritis on the right otherwise unremarkable MR brain and orbits Electronically Signed: Beto Forman MD at 16:11 EST , Service support , CC: Pk Amor MD Pump Servicer Supervisor: Signed CNOV Observed: 06/14/2018 Status: COMPLETED Source: [place] 10:30 AM [facility] REPOSITORY Office Visit (WSTR) AMIE BARAJAS ([id number]) 1975 F Date Time Provider Department 06/14/18 10:30 AM RUCHI SANCHEZ ([facility]) WS During your visit today, we recorded the following information about you: Temperature Pulse Respiration Blood pressure 98.6 degrees 76/minute 16/minute 120/78 Weight 111.6 kg Ruchi Sanchez APRN.NAVIN 06/14/2018 10:57 AM Signed Subjective HPI HPI Amie Barajas is a 42 year old female who presents today for CC of sinus pressure with headache. This started weeks, worsening 6 days ago. Has tried otc medications without relief. Symptoms are worsened by nothing. Risk factors hx of sinusitis. Itchy rash in abdominal fold for 4-5 days. Tried nothing for relief. Recent diagnosis of DM2. .Patient presents with: Rash: abdominal area, red and itching x few days Headache: behind right eye x 6 days PAST MEDICAL HISTORY Diagnosis Date - Hypertension - Thyroid disorder PAST SURGICAL HISTORY Procedure Laterality Date - LAPAROSCOPIC CHOLEYCYSTECTOMY 2001 - [facility] OF Right 2011 Carpel Tunnel surgery ALLERGIES Ampicillin; Sulfa (Sulfonamide Antibiotics) -This section reviewed with patient, no changes MEDICATIONS buPROPion XL (WELLBUTRIN XL) 150 mg 24 hr tablet metFORMIN (GLUCOPHAGE) 500 mg tablet Take 500 mg by mouth twice daily. sitaGLIPtin (JANUVIA) 100 mg tablet Take 100 mg by mouth once daily. LISINOPRIL ORAL Take by mouth. mupirocin (BACTROBAN) 2 % ointment Apply 1 application to affected area three times daily. kybcwqeq-vurzdozml-uesgfxycuobcjo (CORTISPORIN) 3.5-10,000-1 mg/mL-unit/mL-% otic suspension Use 3 Drops in both ears three times daily. triamcinolone acetonide (KENALOG) 0.1 % cream Apply 1 application to affected area three times daily. Apply sparingly to area for rash/itching. codeine-guaiFENesin (ROBITUSSIN AC) 10-100 mg/5 mL syrup Take 5-10 mL by mouth four times daily as needed for Cough. May cause drowsiness. mupirocin (BACTROBAN) 2 % ointment Apply 1 application to affected area three times daily. Location: neck THYROID ORAL Take by mouth. HYDROCHLOROTHIAZIDE ORAL Take by mouth. No family history on file. Social History Substance Use Topics - Smoking status: Never Smoker - Smokeless tobacco: Never Used - Alcohol use No -This section reviewed with patient, no changes Review of Systems Constitutional: Negative for chills, fever and weight loss. HENT: Positive for congestion and sinus pain. Negative for ear pain, nosebleeds and sore throat. Respiratory: Negative for cough, shortness of breath and wheezing. Musculoskeletal: Negative for neck pain. Skin: Positive for itching and rash. Objective Blood pressure 120/78, pulse 76, temperature 37 ?C (98.6 ?F), temperature source Tympanic, resp. rate 16, weight 111.6 kg (246 lb). Physical Exam Constitutional: She is oriented to person, place, and time and well-developed, well-nourished, and in no distress. Non-toxic appearance. She does not have a sickly appearance. No distress. HENT: Head: Normocephalic and atraumatic. Right Ear: Hearing, tympanic membrane, external ear and ear canal normal. Left Ear: Hearing, tympanic membrane, external ear and ear canal normal. Nose: Right sinus exhibits maxillary sinus tenderness and frontal sinus tenderness. Mouth/Throat: Uvula is midline, oropharynx is clear and moist and mucous membranes are normal. Eyes: Pupils are equal, round, and reactive to light. Conjunctivae and lids are normal. Right eye exhibits no discharge. Left eye exhibits no discharge. No scleral icterus. Neck: Trachea normal and normal range of motion. Neck supple. Cardiovascular: Normal rate, regular rhythm and normal heart sounds. Pulmonary/Chest: Effort normal and breath sounds normal. Lymphadenopathy: She has no cervical adenopathy. Neurological: She is alert and oriented to person, place, and time. Skin: No rash noted. She is not diaphoretic. ASSESSMENT/PLAN: 1. Bacterial sinusitis - ICD9: 473.9, 041.9, ICD10: J32.9, B96.89 (primary diagnosis) - Will begin treatment with Doxycline - Supportive care with plenty of fluids, rest, and analgesia prn. - Follow up in 3-5 days if symptoms persist or worsen. - DOXYCYCLINE MONOHYDRATE 100 MG TABLET 2. Intertrigo - ICD9: 695.89, ICD10: L30.4 -use medication as prescribed -follow up if symptoms persist, worsen, change -discussed hygiene - NYSTATIN 100,000 UNIT/GRAM TOPICAL CREAM - NYSTATIN 100,000 UNIT/GRAM TOPICAL POWDER Prescription instructions reviewed with patient as applicable. Patient advised if symptoms do not improve or if symptoms worsen sooner, to contact the office for further evaluation by their primary care physician. Potential red flag symptoms discussed with the patient. Reviewed appropriate action plan to take if red flag symptoms occur. Patient agreeable to treatment plan. Ruchi Sanchez APRN.NAVIN Sanchez APRN.CNP 06/14/2018 10:46 AM Signed Intertrigo - ICD9: 695.89, ICD10: L30.4 -use medication as prescribed -follow up if symptoms persist, worsen, change -discussed hygiene - NYSTATIN 100,000 UNIT/GRAM TOPICAL CREAM - NYSTATIN 100,000 UNIT/GRAM TOPICAL POWDER SINUSITIS: You have sinusitis, an infection of the sinus cavities around the nose. This infection usually follows a respiratory illness; it can also be related to allergies, changes in atmospheric pressure (flying, diving), or anything that blocks nasal drainage. Symptoms include: headache, facial pain, a thick nasal discharge, congestion, and cough. The treatment includes antibiotic therapy, increasing oral fluids, and pain medication if needed. Nose spray decongestants (Afrin, Josesito- Synephrine) and oral decongestants may be needed to reduce congestion and drainage. Rarely the sinus must be irrigated to remove the infected material. Sinusitis can lead to serious complications by spreading to other areas such as the eye or brain. Please call your doctor or return here right away if you have any of the following more serious symptoms: - Unusual swelling around the eye or trouble seeing. - Increasing pain, severe headache, or toothache. - Nausea, vomiting, or unusual drowsiness. Referring Provider: SELF [200] Allergies As of Date: 06/14/2018 Noted Allergy Reaction AMPICILLIN 03/13/2014 4 - Hives 10 - Anaphylaxis SULFA (SULFONAMIDE ANTIBIOTICS) 03/13/2014 14 - Other: See Comments Comments: caused burning/red/swollen eyes Date Reviewed: 06/14/2018 Reviewed by: Ruchi EidAntique Clocks RepairerMirna Sanchez - Fully Assessed Reason for Visit: Rash [1087] Cmt: abdominal area, red and itching x few days Headache [52] Cmt: behind right eye x 6 days Reason For Visit History Recorded Primary Visit Diagnosis:Bacterial sinusitis [J32.9, B96.89] Other Visit Diagnosis:Intertrigo [L30.4] Order(s):doxycycline monohydrate 100 mg tabletTake 1 tablet by mouth twice daily for 10 days.Disp: 20 tabletRfl: 0 nystatin (MYCOSTATIN) creamApply 1 application to affected area three times daily.Disp: 30 gRfl: 1 nystatin (MYCOSTATIN) powderApply 1 application to affected area four times daily for 14 days.Disp: 30 gRfl: 1 Prescriptions as of 06/14/2018 Sig: BUPROPION XL 150 MG TAB METFORMIN 500 MG TABLET Take 500 mg by mouth twice da* SITAGLIPTIN 100 MG TABLET Take 100 mg by mouth once don* LISINOPRIL ORAL Take by mouth. DOXYCYCLINE MONOHYDRATE 100 M* Take 1 tablet by mouth twice * NYSTATIN 100,000 UNIT/GRAM TO* Apply 1 application to affect* NYSTATIN 100,000 UNIT/GRAM TO* Apply 1 application to affect* MUPIROCIN 2 % TOPICAL OINTMENT Apply 1 application to affect* Patient not taking: Reported on 06/14/2018 FHQNQCCC-HBHTZXVHR-EXKXEHHZE * Use 3 Drops in both ears thre* Patient not taking: Reported on 06/14/2018 TRIAMCINOLONE ACETONIDE 0.1 %* Apply 1 application to affect* Patient not taking: Reported on 06/14/2018 CODEINE 10 MG-GUAIFENESIN 100* Take 5-10 mL by mouth four ti* Patient not taking: Reported on 06/14/2018 MUPIROCIN 2 % TOPICAL OINTMENT Apply 1 application to affect* Patient not taking: Reported on 06/14/2018 THYROID ORAL Take by mouth. HYDROCHLOROTHIAZIDE ORAL Take by mouth. Problem List As Of Date: 06/14/2018 (None) Other instructions from your clinician: Intertrigo - ICD9: 695.89, ICD10: L30.4 -use medication as prescribed -follow up if symptoms persist, worsen, change -discussed hygiene - NYSTATIN 100,000 UNIT/GRAM TOPICAL CREAM - NYSTATIN 100,000 UNIT/GRAM TOPICAL POWDER SINUSITIS: You have sinusitis, an infection of the sinus cavities around the nose. This infection usually follows a respiratory illness; it can also be related to allergies, changes in atmospheric pressure (flying, diving), or anything that blocks nasal drainage. Symptoms include: headache, facial pain, a thick nasal discharge, congestion, and cough. The treatment includes antibiotic therapy, increasing oral fluids, and pain medication if needed. Nose spray decongestants (Afrin, Josesito-Synephrine) and oral decongestants may be needed to reduce congestion and drainage. Rarely the sinus must be irrigated to remove the infected material. Sinusitis can lead to serious complications by spreading to other areas such as the eye or brain. Please call your doctor or return here right away if you have any of the following more serious symptoms: - Unusual swelling around the eye or trouble seeing. - Increasing pain, severe headache, or toothache. - Nausea, vomiting, or unusual drowsiness. Prescriptions ordered this encounter Disp Refills Start End DOXYCYCLINE MONOHYDRATE 100 MG TABLET 20 t* 0 06/14/2018 06/24/2018 Route: ORAL Sig: Take 1 tablet by mouth twice daily for 10 days. NYSTATIN 100,000 UNIT/GRAM TOPICAL C* 30 g 1 06/14/2018 Route: TOPICAL Sig: Apply 1 application to affected area three times daily. NYSTATIN 100,000 UNIT/GRAM TOPICAL P* 30 g 1 06/14/2018 06/28/2018 Route: TOPICAL Sig: Apply 1 application to affected area four times daily for 14 days. Encounter Status:Closed by RUCHI SANCHEZ CNP on 06/14/18 PROGRESS Observed: 06/14/2018 Status: COMPLETED Source: [place] 10:28 AM [facility] REPOSITORY O ID: [id number] Author: Ruchi Howard) Service: (none) Author Type: Nurse Practitioner Type: Progress Notes Filed: 06/14/2018 10:57 AM Note Text: Subjective HPI HPI Amie Barajas is a 42 year old female who presents today for CC of sinus pressure with headache. This started weeks, worsening 6 days ago. Has tried otc medications without relief. Symptoms are worsened by nothing. Risk factors hx of sinusitis. Itchy rash in abdominal fold for 4-5 days. Tried nothing for relief. Recent diagnosis of DM2. .Patient presents with: Rash: abdominal area, red and itching x few days Headache: behind right eye x 6 days PAST MEDICAL HISTORY Diagnosis Date - Hypertension - Thyroid disorder PAST SURGICAL HISTORY Procedure Laterality Date - LAPAROSCOPIC CHOLEYCYSTECTOMY 2001 - PAST SURGICAL HISTORY OF 2000 DANAR - PAST SURGICAL HISTORY OF Right 2011 Carpel Tunnel surgery ALLERGIES Ampicillin; Sulfa (Sulfonamide Antibiotics) -This section reviewed with patient, no changes MEDICATIONS buPROPion XL (WELLBUTRIN XL) 150 mg 24 hr tablet metFORMIN (GLUCOPHAGE) 500 mg tablet Take 500 mg by mouth twice daily. sitaGLIPtin (JANUVIA) 100 mg tablet Take 100 mg by mouth once daily. LISINOPRIL ORAL Take by mouth. mupirocin (BACTROBAN) 2 % ointment Apply 1 application to affected area three times daily. jepxneit-kbcgbtsyo-rjjynkzvzbzumu (CORTISPORIN) 3.5-10,000-1 mg/mL-unit/mL-% otic suspension Use 3 Drops in both ears three times daily. triamcinolone acetonide (KENALOG) 0.1 % cream Apply 1 application to affected area three times daily. Apply sparingly to area for rash/itching. codeine-guaiFENesin (ROBITUSSIN AC) 10-100 mg/5 mL syrup Take 5-10 mL by mouth four times daily as needed for Cough. May cause drowsiness. mupirocin (BACTROBAN) 2 % ointment Apply 1 application to affected area three times daily. Location: neck THYROID ORAL Take by mouth. HYDROCHLOROTHIAZIDE ORAL Take by mouth. No family history on file. Social History Substance Use Topics - Smoking status: Never Smoker - Smokeless tobacco: Never Used - Alcohol use No -This section reviewed with patient, no changes Review of Systems Constitutional: Negative for chills, fever and weight loss. HENT: Positive for congestion and sinus pain. Negative for ear pain, nosebleeds and sore throat. Respiratory: Negative for cough, shortness of breath and wheezing. Musculoskeletal: Negative for neck pain. Skin: Positive for itching and rash. Objective Blood pressure 120/78, pulse 76, temperature 37 ?C (98.6 ?F), temperature source Tympanic, resp. rate 16, weight 111.6 kg (246 lb). Physical Exam Constitutional: She is oriented to person, place, and time and well-developed, well-nourished, and in no distress. Non-toxic appearance. She does not have a sickly appearance. No distress. HENT: Head: Normocephalic and atraumatic. Right Ear: Hearing, tympanic membrane, external ear and ear canal normal. Left Ear: Hearing, tympanic membrane, external ear and ear canal normal. Nose: Right sinus exhibits maxillary sinus tenderness and frontal sinus tenderness. Mouth/Throat: Uvula is midline, oropharynx is clear and moist and mucous membranes are normal. Eyes: Pupils are equal, round, and reactive to light. Conjunctivae and lids are normal. Right eye exhibits no discharge. Left eye exhibits no discharge. No scleral icterus. Neck: Trachea normal and normal range of motion. Neck supple. Cardiovascular: Normal rate, regular rhythm and normal heart sounds. Pulmonary/Chest: Effort normal and breath sounds normal. Lymphadenopathy: She has no cervical adenopathy. Neurological: She is alert and oriented to person, place, and time. Skin: No rash noted. She is not diaphoretic. ASSESSMENT/PLAN: 1. Bacterial sinusitis - ICD9: 473.9, 041.9, ICD10: J32.9, B96.89 (primary diagnosis) - Will begin treatment with Doxycline - Supportive care with plenty of fluids, rest, and analgesia prn. - Follow up in 3-5 days if symptoms persist or worsen. - DOXYCYCLINE MONOHYDRATE 100 MG TABLET 2. Intertrigo - ICD9: 695.89, ICD10: L30.4 -use medication as prescribed -follow up if symptoms persist, worsen, change -discussed hygiene - NYSTATIN 100,000 UNIT/GRAM TOPICAL CREAM - NYSTATIN 100,000 UNIT/GRAM TOPICAL POWDER Prescription instructions reviewed with patient as applicable. Patient advised if symptoms do not improve or if symptoms worsen sooner, to contact the office for further evaluation by their primary care physician. Potential red flag symptoms discussed with the patient. Reviewed appropriate action plan to take if red flag symptoms occur. Patient agreeable to treatment plan. Ruchi Sanchez APRN.APPRENTICE PAINTER HAND HEMOGLOBIN A1C Collected: 04/22/2018 Status: F Source: [place] 11:37 AM [facility] REPOSITORY Order Comment: Order Date: 03/27/18 Order Info: [id number] - A1C TYPE CODE TESTS RESULT OUT OF RANGE REFERENCE UNITS LAB L501.9985 4.2-6.3 % High HGB A1C 6.8 Performed By: #### L501.9985 #### [facility] [address] [place], [address] COMPREHENSIVE METABOLIC Collected: 04/22/2018 Status: F Source: [place] PRETTY 11:37 AM [facility] REPOSITORY Order Comment: Order Date: 03/27/18 Order Info: [id number] - CMP Order Info: 30031-7 - LIPID TYPE CODE TESTS RESULT OUT OF RANGE REFERENCE UNITS LAB L501.0100 74-106 mg/dL Normal GLU 105 Result Comment: Fasting Glucose result from 100 to 125 mg/dL suggests IMPAIRED HOMEOSTASIS per A.D.A. criteria. Please note revised GLUCOSE reference range effective 2017. LAB L501.1000 7-18 mg/dL Normal BUN 12 LAB L501.1100 0.55-1.02 mg/dL Normal CREAT,SERUM 0.96 Result Comment: The validity of the calculated GFR AND GFRAA in patients over 70 years has not been determined. Clinical correlation is essential. LAB L501.1110 >60 mL/min Normal EST GFR 68 Result Comment: Non- GFR Calc LAB L501.1115 >60 mL/min Normal EST GFR - AA 82 Result Comment: GFR Calc LAB L501.1300 10-20 RATIO Normal BUN/CRE 12.5 LAB L501.1500 6.4-8.2 g/dL T Normal PROT 7.6 LAB L501.1800 3.2-5.0 g/dL Normal ALB 3.6 LAB L501.1950 2.2-4.2 g/dL Normal GLOB 4.0 LAB L501.2000 0.9-2.4 RATIO Normal A/G 0.9 LAB L501.2200 8.5-10.1 mg/dL CA Normal 8.9 LAB L501.4100 15-37 U/L Normal AST 33 LAB L501.4305 45-117 U/L Normal ALK P 110 LAB L501.4405 13-56 U/L Normal ALT 53 LAB L501.4600 0.20-1.00 mg/dL T Normal BILI 0.50 LAB L501.5300 136-145 mmol/L NA Normal 139 LAB L501.5600 3.5-5.1 mmol/L K Normal 3.9 LAB L501.5900 98-107 mmol/L CL Normal 101 LAB L501.6100 21.0-32.0 mmol/L Normal CO2 30.0 LAB L501.6200 5-15 Normal GAP 8 Performed By: #### L500.4050, L500.4100 #### [facility] [address] [place], [address] LIPID PROFILE Collected: 04/22/2018 Status: F Source: [place] 11:37 AM [facility] REPOSITORY Order Comment: Order Date: 03/27/18 Order Info: [id number] - CMP Order Info: 96131-4 - LIPID TYPE CODE TESTS RESULT OUT OF RANGE REFERENCE UNITS LAB L501.4900 200 mg/dL High CHOL 231 Result Comment: <200 mg/dL Desirable 200-240 mg/dL Borderline >240 mg/dL High Risk LAB L501.5000 mg/dL High TRIG 217 Result Comment: The drugs N-Acetylcysteine and Metamizole may falsely depress this assay. Serum Triglycerides Reference Interval Normal <150 mg/dL Borderline high 150 - 199 mg/dL High 200 - 499 mg/dL Very High > or = 500 mg/dL LAB L501.6400 mg/dL Low HDL 38 Result Comment: The drugs N-Acetylcysteine and Metamizole may falsely depress this assay. Reference Range HDL <40 mg/dL Low HDL Cholesterol HDL >or= 60 mg/dL High HDL Cholesterol LAB L501.6500 0-130 mg/dL High LDL 150 LAB L501.6600 5-40 mg/dL High VLDL 43 Performed By: #### L500.4050, L500.4100 #### [facility] [address] [place], [address] 12 LEAD ELECTROCARDIOGRAM Observed: 04/02/2018 Status: F Source: [place] 2:30 PM [facility] REPOSITORY [facility] Cardiovascular Services [address] [place] [address] 12 Lead EKG 03/29/18917 MR#: [id number] Acct: [id number] Name: AMIE BARAJAS Rep #: [id number] : 1975 42 From: Rosales Luque MD Attending Dr: Status: DEP ER Ordering Dr: Sky Lopez MD Date: 03/29/18 Location: ED Sex: F C Admitted: Test Reason : CHEST OTHER Blood Pressure : / mmHG Vent. Rate : 078 BPM Atrial Rate : 078 BPM P-R Int : 148 ms QRS Dur : 094 ms QT Int : 394 ms P-R-T Axes : 019 -36 -03 degrees QTc Int : 449 ms Normal sinus rhythm Left axis deviation ,LAHB Abnormal ECG Confirmed by ROSALES LUQUE ([id number]), desk editor REAGAN SMITH ([id number]) on 04/02/2018 2:30:13 PM Referred By: GERALDINE Confirmed By:ROSALES LUQUE 04/02/18 1430 Date Rosales Luque MD CC: Pk Amor MD; Sky Lopez MD Signed DISCHARGE INSTRUCTION Observed: 03/29/2018 Status: F Source: [place] 9:28 AM [facility] Medical Records Department [address] [place] [address] Discharge Instruction 03/29/18926 MR#: [id number] Acct: [id number] Name: AMIE BARAJAS Rep #: [id number] : 1975 42 From: Sky Lopez MD PCP: Pk Amor MD Status: REG ER ED Disposition - Plan for ED Patient: Disposition: Home or Assisted Living Chief Complaint: Chest Other Instructions: ED GERD, ED Paraesthesias Prescriptions: Omeprazole [Prilosec] 20 mg PO DAILY #30 cap Prednisone [Deltasone] 40 mg PO DAILY #10 tab Referrals: Pk Amor MD [Primary Care Provider] - What to do if you have Problems For any increased pain, shortness of breath, bleeding, nausea or vomiting, chest pain, or any unexpected problems, contact your Primary Care Provider. Call [facility] ([phone]) or report to the closest Emergency Room. Call 911 if necessary. 03/29/18927 <Electronically signed by Sky Lopez MD> Date Sky Lopez MD Cosigner Signature (If Indicated): Date CC: Pk Amor MD EMERGENCY DEPARTMENT Observed: 03/29/2018 Status: F Source: [place] SUMMARY 9:27 AM [facility] REPOSITORY [facility] Medical Records Department [address] [place] [address] Emergency Department Summary 03/29/18899 MR#: [id number] Acct: [id number] Name: AMIE BARAJAS Rep #: [id number] : 1975 42 From: Sky Lopez MD PCP: Pk Amor MD Status: REG ER - ER Visit Summary Date of Service: 03/29/18 Chief Complaint: Numbness and tingling left arm, reflux History of Present Illness: The patient is a 42 F who states for the past 2 weeks she has had numbness and tingling of the left arm. It goes from the shoulder all the way down. She saw her primary care doctor on Sunday this week but did not mention it to him. She has taken nothing for it. Over the past 2 days she has had reflux with burning and a brash taste in the back of her mouth. She has some intermittent dull pains in her chest. She denies any fevers. No neck pain. Physical Examination: Vital signs reviewed. HEENT exam unremarkable. Spine is nontender. Heart is regular rate and rhythm without murmurs. Lungs are clear to auscultation. Abdomen is soft and nontender. Extremities reveal no edema. Skin exam normal. Neurologic exam normal. Test Results: EKG is normal sinus rhythm with a rate of 78. No ST changes. Emergency Department Course and Treatment: Patient will be given a GI cocktail here. No signs of any cardiac issues. She may have a little bit of radiculopathy causing the paresthesias. Patient will be treated with prednisone at home. Also give her Prilosec. She will follow up with her PCP Treatment Plan: [] Disposition: Discharge Impression: GERD, left arm paresthesias This note was generated with [employer] dictation software. It may contain incorrect words, spelling, and punctuation that were not noted in review of the chart prior to signing ED Disposition - Plan for ED Patient: Chief Complaint: Chest Other Referrals: Pk Amor MD [Primary Care Provider] - What to do if you have Problems For any increased pain, shortness of breath, bleeding, nausea or vomiting, chest pain, or any unexpected problems, contact your Primary Care Provider. Call [facility] ([phone]) or report to the closest Emergency Room. Call 911 if necessary. 03/29/18926 <Electronically signed by Sky Lopez MD> Date Sky Lopez MD Cosigner Signature (If Indicated): Date CC: Pk Amor MD MICROALB:CREAT Collected: 01/04/2018 Status: F [facility] AM [facility] REPOSITORY TYPE CODE TESTS RESULT OUT OF RANGE REFERENCE UNITS LAB L501.1200 NO RANGE EST. mg/dL Normal UR CREAT 235.00 LAB L502.0500 NO RANGE EST. mg/L Normal 34.5 MICROALBUMIN ,UR LAB L502.0600 <30 mg/g CRE mg/g CRE Normal 14.7 MALB:CREAT Performed By: #### L502.0250 #### [facility] [address] [place], [address] COMPREHENSIVE METABOLIC Collected: 01/04/2018 Status: F Source: [place] PROFIL 9:12 AM [facility] REPOSITORY TYPE CODE TESTS RESULT OUT OF RANGE REFERENCE UNITS LAB L501.0100 74-106 mg/dL High GLU 126 Result Comment: Fasting Glucose result greater than or equal to 126 mg/dL suggests DIABETES MELLITUS per A.D.A. criteria. Please note revised GLUCOSE reference range effective 2017. LAB L501.1000 7-18 mg/dL Normal BUN 10 LAB L501.1100 0.55-1.02 mg/dL Normal CREAT,SERUM 0.98 Result Comment: The validity of the calculated GFR AND GFRAA in patients over 70 years has not been determined. Clinical correlation is essential. LAB L501.1110 >60 mL/min Normal EST GFR 66 Result Comment: Non- GFR Calc LAB L501.1115 >60 mL/min Normal EST GFR - AA 79 Result Comment: GFR Calc LAB L501.1300 10-20 RATIO Normal BUN/CRE 10.2 LAB L501.1500 6.4-8.2 g/dL High T PROT 8.3 LAB L501.1800 3.2-5.0 g/dL Normal ALB 3.9 LAB L501.1950 2.2-4.2 g/dL High GLOB 4.4 LAB L501.2000 0.9-2.4 RATIO Normal A/G 0.9 LAB L501.2200 8.5-10.1 mg/dL CA Normal 8.7 LAB L501.4100 15-37 U/L High AST 45 LAB L501.4305 45-117 U/L Normal ALK P 107 LAB L501.4405 13-56 U/L High ALT 60 LAB L501.4600 0.20-1.00 mg/dL T Normal BILI 0.30 LAB L501.5300 136-145 mmol/L NA Normal 138 LAB L501.5600 3.5-5.1 mmol/L K Normal 3.7 LAB L501.5900 98-107 mmol/L CL Normal 104 LAB L501.6100 21.0-32.0 mmol/L Normal CO2 26.0 LAB L501.6200 5-15 Normal GAP 8 Performed By: #### L500.4050, L500.4100, L501.9520, L506.0400 #### [facility] [address] [place], [place], [address] LIPID PROFILE Collected: 01/04/2018 Status: F Source: [place] 9:12 AM [facility] REPOSITORY TYPE CODE TESTS RESULT OUT OF RANGE REFERENCE UNITS LAB L501.4900 200 mg/dL High CHOL 216 Result Comment: <200 mg/dL Desirable 200-240 mg/dL Borderline >240 mg/dL High Risk LAB L501.5000 mg/dL High TRIG 229 Result Comment: The drugs N-Acetylcysteine and Metamizole may falsely depress this assay. Serum Triglycerides Reference Interval Normal <150 mg/dL Borderline high 150 - 199 mg/dL High 200 - 499 mg/dL Very High > or = 500 mg/dL LAB L501.6400 mg/dL Low HDL 32 Result Comment: The drugs N-Acetylcysteine and Metamizole may falsely depress this assay. Reference Range HDL <40 mg/dL Low HDL Cholesterol HDL >or= 60 mg/dL High HDL Cholesterol LAB L501.6500 0-130 mg/dL High LDL 138 LAB L501.6600 5-40 mg/dL High VLDL 46 Performed By: #### L500.4050, L500.4100, L501.9520, L506.0400 #### [facility] [address] [place], [address] THYROID STIM HORMONE Collected: 01/04/2018 Status: F Source: [place] (TSH) 9:12 AM [facility] REPOSITORY TYPE CODE TESTS RESULT OUT OF RANGE REFERENCE UNITS LAB L501.9520 0.358-3.74 uIU/mL Normal TSH 2.66 Performed By: #### L500.4050, L500.4100, L501.9520, L506.0400 #### [facility] [address] [place], [address] T4 FREE DIRECT Collected: 01/04/2018 Status: F Source: [place] 9:12 AM [facility] REPOSITORY TYPE CODE TESTS RESULT OUT OF RANGE REFERENCE UNITS LAB L506.0400 0.76-1.46 ng/dL Normal T4 FREE 0.92 DIRECT Performed By: #### L500.4050, L500.4100, L501.9520, L506.0400 #### [facility] [address] [place], [address] ALLERGIES ALLERGIES DATE TYPE / CODE NAME / CODE REACTION SEVERITY SOURCE 06/28/2018 Drug Sulfa Rash Unknown [place] Allergy/416 (Sulfonamide Community 882576(SNOM Antibiotics)/F[address] ED CT) 148720(RXNORM) Repository 06/28/2018 Drug ampicillin/O73101 Shortness of Unknown [place] Allergy/416 2692(RXNORM) breath Community 368257([facility] Hospital ED CT) Repository 03/13/2014 DRUG AMPICILLIN HIVES High [facility] INGREDI/419 [place] 016435(SNOM Repository ED CT) 03/13/2014 Drug SULFA OTHER: SEE C [facility] Class/23095 (SULFONAMIDE [place] 1003(SNOMED ANTIBIOTICS) Repository CT) ENCOUNTERS ENCOUNTERS ADMIT/DISCHARGE ACCOUNT ADMITTING ENCOUNTER LOCATION SOURCE NUMBER CLASS 07/17/2018/07/17/[id number] [facility]:SDC Repository 07/12/2018 [id number] Ambulatory [facility] Hospital ing:RAD Repository 07/08/2018 [id number] Ambulatory [facility] ing:MRI Repository 07/01/2018 [id number] Ambulatory [facility] Hospital ing:LAB.FUTUR Repository E 06/30/2018/06/30/20 [id number] [address] ing:MEDOUTP Repository 06/29/2018/06/29/20 [id number] [address] [facility]:MED[facility]PR[facility] Repository om: [id number] 06/28/2018 [id number] [facility] 06/27/2018 [id number] [facility] ing:MED[facility]P Repository 06/26/2018 [id number] [facility] Rep[facility] 06/26/2018 [id number] [facility]UR Repository E 06/25/2018 [id number] [facility] Hospital ing:MRI Repository 06/14/2018/06/14/20 [id number] Ambulatory [address] Repository 04/22/2018 [id number] Ambulatory [facility] ing:MTLAB Repository 03/29/2018/03/29/20 [id number] Emergency [address] ing:ED Repository 01/04/2018 [id number] Ambulatory [facility] ing:MTLAB Repository PAYERS PAYERS ENCOUNTER GUARANTOR PAYER SUBSCRIBER SOURCE 07/17/2018 AMIE Wesly Primary AMIE Jarrell Dorothy [id number] Insurance:ANTHEMPolic ALLISONDOB: [facility] y Number: [id number] [id number] Repository 65951Xrg: (330) Date:2081-52-96MZ [phone] () [id number], [place] [address]JO: 07/17/2018 Secondary NOT GIVENUNK Dorsey Insurance:SELF PAY [facility] Number: Effective Repository Date:2018-07-17 07/12/2018 AMIE Jarrell Primary AMIE Jarrell Dorsey [id number] Insurance:ANTHEMPolic ALLISONDOB: [facility] y Number: [id number], [place] [id number] Repository 406[address]Run: (330) Date:8838-76-11JK [phone] () [place]W, [place] [address]HZ: 07/12/2018 Secondary NOT GIVENUNK Dorsey Insurance:SELF PAY [facility] Number: Effective Repository Date:2018-07-01 07/08/2018 AMIE Jarrell Primary AMIE [id number] Insurance:ANTHEMPolic ALLISONDOB: [facility] y Number: [id number], [place] [id number] Repository [address]Jzp: (330) Date:0993-61-96OP [phone] () [id number] VANN [address]UU: 07/08/2018 Secondary NOT GIVENUNK Dorsey Insurance:SELF PAY [facility] Number: Effective Repository Date:2018-07-01 07/01/2018 AMIE L Primary AMIE L Dorsey [id number] Insurance:ANTHEMPolic ALLISONDOB: 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 y Number: [id number], [place] [id number] Repository [address]Gbi: (330) Date:7081-18-36UD [phone] () [address] [place] [address]CN: 07/01/2018 Secondary NOT GIVENUNK Dor[place] Insurance:SELF PAY [facility] Number: Effective Repository Date:2018-07-01 06/30/2018 AMIE L Primary AMIE L [place]sey [id number] Insurance:ANTHEMPolic ALLISONDOB: [facility] y Number: [id number], [place] [id number] Repository 48[address]Omp: (330) Date:8198-21-46XF [phone] () [address] [place] [address]YG: 06/30/2018 Secondary NOT GIVENUNK Dorothy Insurance:SELF PAY [facility] Number: Effective Repository Date:2018-06-28 06/29/2018 AMIE L Primary AMIE L Dorothy [id number] Insurance:ANTHEMPolic ALLISONDOB: [facility] y Number: [id number], [place] [id number] Repository [address]Toc: (330) Date:7492-84-76BN [phone] () [id number] [place] [address]WU: 06/29/2018 Secondary NOT GIVENUNK Dorothy Insurance:SELF PAY [facility] Number: Effective Repository Date:2018-06-28 06/28/2018 AMIE L Primary AMIE L Dorothy [id number] Insurance:ANTHEMPolic ALLISONDOB: [facility] y Number: [id number], [place] [id number] Repository [address]Vnn: (330) Date:9447-72-01QP [phone] () [id number] VANN [address]LD: 06/28/2018 Secondary NOT GIVENUNK Dorsey Insurance:SELF PAY [facility] Number: Effective Repository Date:2018-06-26 06/27/2018 AMIE L Primary AMIE L Dorsey [id number] Insurance:ANTHEMPolic ALLISONDOB: 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 y [place]: [id number], [place] [id number] Repository [address]Bym: (330) Date:8661-70-56XQ [phone] () [id number], [place] [address]PX: 06/27/2018 Secondary NOT GIVENUNK Dorsey Insurance:SELF PAY [facility] Number: Effective Repository Date:2018-06-26 06/26/2018 AMIE L Primary AMIE L Dorsey [id number] Insurance:ANTHEMPolic ALLISONDOB: 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 y Number: [id number], [place] [id number] Repository [address]Dwe: (330) Date:1947-24-32SN [phone] () [id number] VANN [address]SS: 06/26/2018 Secondary NOT GIVENUNK Dorothy Insurance:SELF PAY [facility] Number: Effective Repository Date:2018-06-26 06/26/2018 AMIE L Primary AMIE L Dorothy [id number] Insurance:ANTHEMPolic ALLISONDOB: 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 y Number: [id number], [place] [id number] Repository [address]Uol: (330) Date:7054-12-71PT [phone] () [id number], [place] [address]VU: 06/26/2018 Secondary NOT GIVENUNK Dorothy Insurance:SELF PAY [facility] Number: Effective Repository Date:2018-06-26 06/25/2018 AMIE L Primary AMIE L Dorsey [id number] Insurance:ANTHEMPolic ALLISONDOB: 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 y Number: [id number], [place] [id number] Repository [address]Nzh: (330) Date:9157-72-18ZR [phone] () [id number] VANN [address]KX: 06/25/2018 Secondary NOT GIVENUNK Dorothy Insurance:SELF PAY [facility] Number: Effective Repository Date:2018-06-25 04/22/2018 AMIE L Primary AMIE L Dorsey [id number] Insurance:ANTHEMPolic ALLISONDOB: 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 y Number: [id number], [place] [id number] Repository [address]Ekz: (330) Date:2289-15-19JA [phone] () [id number] VANN [address]OA: 04/22/2018 Secondary NOT GIVENUNK Dorsey Insurance:SELF PAY [facility] Number: Effective Repository Date:2018-04-22 03/29/2018 AMIE L Primary AMIE L Dorothy [id number] Insurance:ANTHEMPolic ALLISONDOB: 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 y Number: [id number], [place] [id number] Repository [address]Tkv: (330) Date:2297-39-75LM [phone] () [id number] VANN [address]XY: 03/29/2018 Secondary NOT GIVENUNK Dorsey Insurance:SELF PAY [facility] Number: Effective Repository Date:2018-03-29 01/04/2018 AMIE L Primary AMIE L Dorothy [id number] Insurance:ANTHEMPolic ALLISONDOB: 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
== END ==
PROVIDERS: Family Provider Family Medicine; PCP Family Medicine; Referring Provider Psychiatry & Neurology Neurology; Visit Provider Psychiatry & Neurology Neurology
DX: H46.9 Unspecified optic neuritis (principal)
CPT/HCPCS: 72156; 72157; A9585

== ENCOUNTER → 2018-07-12 09:57 | Outpatient (CLI) | payer BC, SELFPAY ==
[2018-06-28 11:07] VITALS: BMI 40.7
--- NOTE | 2018-07-12 10:19 | RAD_ITS ---
PROCEDURE: Fluoroscopic guided Lumbar Puncture. DATE: July 12, 2018. CLINICAL INDICATION: Possible multiple sclerosis. PHYSICIAN: Pito Hagan M.D. MEDICATIONS: 1% lidocaine administered subcutaneously for local anesthesia. ACCESS SITE: Lower posterior back. NEEDLE: 22-gauge spinal needle. SPECIMEN: Approximately 13 mL clear]CSF fluid. FLUOROSCOPY TIME (if supplied): (0:37) minutes/seconds COMPLICATIONS: None immediate. The risks, benefits, and alternatives to the procedure were explained to the patient. The specific risks of bleeding, infection, and neurovascular injury were detailed and accepted. Witnessed informed consent was obtained. The patient was placed on the fluoroscopic table in the prone position. The level for needle entry was determined and marked. The overlying skin was cleaned and prepped in the usual sterile fashion. 2% lidocaine was administered subcutaneously for local anesthesia. Under fluoroscopic guidance a 22-gauge spinal needle was advanced. The thecal sac was entered at the L2-L3 vertebral level. The inner stylet was removed. There was spontaneous flow of clear CSF fluid. The patient was placed in a reversed Trendelenburg position. Approximately 13 mL of cerebrospinal fluid was collected using gravity. The specimen was collected and submitted to the laboratory for further evaluation. The needle was withdrawn,. Hemostasis was achieved and a sterile dressing placed. The patient tolerated the procedure well without any immediate complications. The patient was placed supine with head elevated and returned to the floor in stable condition. RAD/Fluoro Guided Lumbar Puncture IMPRESSION: Successful fluoroscopic-guided lumbar puncture. Electronically Signed: Pito Hagan MD at 12:41 EST Tel [phone], Service support ,
[2018-07-12 10:40] LABS: Absolute Lymphocyte Count 1.48 X10^3/ul (0.83-4.51); Absolute Neutrophil Count 6.3 X10^3/uL (2.0-7.7); Basophil# 0.02 X10^3/uL; Basophil% 0.2 % (0-1); Eosinophil# 0.09 X10^3/uL; Eosinophils% 1.1 % (0-5); Hematocrit 46.3 % (37-47); Hemoglobin 15.4 g/dl (12.0-15.0); Lymphocyte # 1.48 X10^3/ul (4.0); Lymphocyte % 17.6 % (19-41); Mean Corp Hgb Conc 33.3 g/gl (32-36); Mean Corpuscular Hgb 29.3 pg (27.0-32.0); Mean Corpuscular Volume 88.2 fL (81-99); Mean Platelet Vol. 9.4 fl (6.2-12.0); Monocyte# 0.48 X10^3/uL; Monocyte% 5.7 % (0-10); Neutrophil # 6.32 X10^3/uL (2.7-7.7); Neutrophil % 75.3 % (47-70); POSITIVE COUNT NO; POSITIVE DIFFERENTIAL NO; POSITIVE MORPHOLOGY NO; Platelet Count 241 K/mm3 (150-450); RBC Distribution Width CV 13.2 % (11.6-14.6); RBC Distribution Width SD 42.2 fl (35.1-43.9); Red Blood Count 5.25 M/mm3 (4.2-5.4); White Blood Count 8.4 K/mm3 (4.4-11.0)
[2018-07-12 10:47] LABS: Glucose 95 mg/dL (74-106)
--- NOTE | 2018-07-12 11:05 | CYSPIN_PTH ---
PATIENT: PAM MENDEZ LOC: [facility] U#:[id number] AGE/SX: 49/F ROOM: RE07/12/[address]: Dr. Tana Gamble MD : [id number] BED: DIS: SPEC #: [id number] RECD: 07/12/18 12:11 STATUS: KEITH ERICKA #: [id number] DANE: 07/12/18 11:[address]: Tana Gamble DEPT: CYTOLOGY RECD BY: Mamadou Borden ENTERED: 07/12/18 12:11 SP TYPE: CYSPIN FL OTHR DR: Dr. Pk Amor MD Tissues: Cerebrospinal Fluid Procedures: Pap Stain (control) Special Stain Group II Cytospin Fluid HEADER OPERATION: Lumbar puncture PRE-OP DIAGNOSIS: Possible MS TISSUE SUBMITTED: Cerebrospinal fluid for cytology DIAGNOSIS CYTOLOGY Cerebrospinal fluid for cytology (cytospin): Negative for malignant cells. SJ:kristen 07/15/18 CYTOLOGY STUDY Slides are reviewed. The specimen is paucicellular and consists of a few lymphocytes and monocytes. CYTOLOGY GROSS Received is 3 ml of clear colorless fluid labeled with the patient's name and and designated per the requisition as CSF. Submitted for cytology preparation. 07/12/18 TC:4 CPT: 66018
[2018-07-12 11:16] VITALS: BP 100/58; PULSE 70; RESP 16; O2SAT 94; BMI 40.7
[2018-07-12 11:25] LABS: Cytology, Body Fluid / CSF SEE PATHOLOGY REPORT
[2018-07-12 11:30] LABS: Oligoclonal Banding REF LAB
[2018-07-12 11:42] LABS: Body Fluid Mononuclear WBC # 0.001 10^3/uL; Total Cell Count CSF 0.001 10^3/uL (0.000-0.000); White Count, CSF 0.001 10^3/uL (0.000-0.000)
[2018-07-12 11:45] LABS: Appearance CSF (character) CLEAR (Clear); Auto B Fluid Analyzer BKGD Ct COUNTS W/IN LIMITS (W/IN LIMITS); Body Fluid QC Type(s) BF1Q; CSF Color COLORLESS (Colorless); RBC Count, Spinal Fluid 0 /mm-3 (None seen); Tested Tube # 4
[2018-07-12 12:05] VITALS: BP 100/57; PULSE 68; RESP 18; O2SAT 94
[2018-07-12 12:10] LABS: Glucose Spinal Fluid 61 mg/dL (40-75)
[2018-07-15 09:59] LABS: Pathologist Review Reviewed
[2018-07-17 03:05] LABS: HSV 1 By PCR Negative (Negative)
[2018-07-17 12:08] LABS: CMV by PCR Negative (Negative); HSV 2 By PCR Negative (Negative)
[2018-07-18 06:05] LABS: CSF Albumin 13 mg/dL (11-48); CSF IgG 1.5 mg/dL (0.0-8.6); CSF IgG Index 0.7 (0.0-0.7); IgG Serum 846 mg/dL (700-1600); IgG/Alb Ratio, CSF 0.12 (0.00-0.25); PROEL- A/G Ratio 1.3 (0.7-1.7); PROEL- Albumin 4.3 g/dL (2.9-4.4); PROEL- Alpha-1 Globulin 0.2 g/dL (0.0-0.4); PROEL- Alpha-2 Globulin 0.9 g/dL (0.4-1.0); PROEL- Beta Globulin 1.3 g/dL (0.7-1.3); PROEL- Gamma Globulin 0.8 g/dL (0.4-1.8); PROEL- Globulin, Total 3.3 g/dL (2.2-3.9); PROEL- TOTAL PROTEIN 7.6 g/dL (6.0-8.5); Serum Albumin 4.9 g/dL (3.5-5.5)
[2018-07-18 14:29] LABS: CSF:Serum Albumin Index 3 (0-8)
== END ==
PROVIDERS: Family Provider Family Medicine; PCP Family Medicine; Referring Provider Psychiatry & Neurology Neurology; Visit Provider Psychiatry & Neurology Neurology
DX: H46.9 Unspecified optic neuritis (principal)
CPT/HCPCS: 36415; 62270; 77003; 82040; 82042; 82784; 82945; 82947; 83873; 83916; 84157; 84165; 85025; 87205; 87496; 87529; 88108; 88313; 89050; 89051

== ENCOUNTER 2018-07-17 16:27 | Day surgery (SDC) | payer BC, SELFPAY ==
[2018-07-12 11:16] VITALS: BMI 40.7
[2018-07-17 16:25] VITALS: BP 126/88; PULSE 90
[2018-07-17 17:45] VITALS: BP 114/81; PULSE 68
== END 2018-07-17 18:59 | disposition home or self-care (01) ==
LOC: SDC 16:27
PROVIDERS: Family Provider Family Medicine; PCP Family Medicine; Referring Provider Anesthesiology; Visit Provider Anesthesiology
PROC: 3E0R3GC Introduction of Other Therapeutic Substance into Spinal Canal, Percutaneous Approach (ICD-10-PCS; CPT 62273; principal; 2018-07-17 16:30)
DX: G97.1 Other reaction to spinal and lumbar puncture (principal); Y84.4 Aspiration of fluid as the cause of abnormal reaction of the patient, or of later complication, without mention of misadventure at the time of the procedure; Y92.9 Unspecified place or not applicable
CPT/HCPCS: 62273; J7030

== ENCOUNTER 2018-11-26 17:32 | Emergency (ER) | payer BC, SELFPAY ==
[2018-07-12 11:16] VITALS: BMI 40.7
[2018-11-26 17:33] VITALS: BP 140/92; PULSE 102; RESP 16; TEMP 36.3; O2SAT 98; BMI 36.1
--- NOTE | 2018-11-26 17:48 | NURSING ---
visual changes and roman that started a week ago. dr. packer called pt and told to come here for admission for iv steroids
--- NOTE | 2018-11-26 17:54 | ED.VISSUMM ---
- ER Visit Summary Date of Service: 11/26/18 Chief Complaint: Headache and right eye visual change History of Present Illness: The patient is a 43 F 3 of optic neuritis diagnosed in June 2018. At that time patient was treated with steroids and her symptoms resolved. For the last week she has had a mild headache that was gradual onset. And also visual change in her right eye. She states it is like looking through Vaseline. She saw her human resource officer yesterday. She spoke to her neurologist who wanted her admitted and started on IV steroids. Otherwise she denies any other symptoms. No trouble using her arms or legs. No difficulty walking. No speech change. She has had this worked up extensively in the past with MRIs etc. Physical Examination: Middle-aged female. No acute distress. Vital signs are stable and afebrile. HEENT exam pupils round reactive light. Extra motions are intact. No facial droop. Normal speech. Neck nontender. Lungs clear to auscultation bilaterally. Heart regular rhythm no murmur rate about 90. Abdomen soft and nontender. Patient is moving all 4 extremities. Neurovascular intact. 5 out of 5 motor strength. Dorsi plantarflexion intact. Fingertip to nose within normal limits. Neurologically she is awake and alert. Other than visual change in her right eye no other acute abnormalities. NIH score of 1. Test Results: [] Emergency Department Course and Treatment: Neurologist on page to discuss starting IV steroids and what dose. I will speak to the hospitalist about admission. A chemistry panel is being obtained just for baseline to the IV steroids and her having a history of diabetes. I spoke with the neurologist and he requested the patient be started on Solu-Medrol IV 1 g which is been ordered. Treatment Plan: IV steroids for the treatment of optic neuritis. The hospitalist spoke to both primary care physician and neurologist to set up outpatient IV steroid therapy and follow-up imaging. Disposition: dc Impression: Headache and right eye visual change secondary to recurrent optic neuritis This note was generated with [employer] dictation software. It may contain incorrect words, spelling, and punctuation that were not noted in review of the chart prior to signing ED Disposition - Plan for ED Patient: Referrals: Pk Amor MD [Primary Care Provider] -
--- NOTE | 2018-11-26 17:59 | ED.DCSUM_ITS ---
- ER Visit Summary Date of Service: 11/26/18 Chief Complaint: Headache and right eye visual change History of Present Illness: The patient is a 43 F 3 of optic neuritis diagnosed in June 2018. At that time patient was treated with steroids and her symptoms resolved. For the last week she has had a mild headache that was gradual onset. And also visual change in her right eye. She states it is like looking through Vaseline. She saw her circular saw operator yesterday. She spoke to her neurologist who wanted her admitted and started on IV steroids. Otherwise she denies any other symptoms. No trouble using her arms or legs. No difficulty walking. No speech change. She has had this worked up extensively in the past with MRIs etc. Physical Examination: Middle-aged female. No acute distress. Vital signs are stable and afebrile. HEENT exam pupils round reactive light. Extra motions are intact. No facial droop. Normal speech. Neck nontender. Lungs clear to auscultation bilaterally. Heart regular rhythm no murmur rate about 90. Abdomen soft and nontender. Patient is moving all 4 extremities. Neurovascular intact. 5 out of 5 motor strength. Dorsi plantarflexion intact. Fingertip to nose within normal limits. Neurologically she is awake and alert. Other than visual change in her right eye no other acute abnormalities. NIH score of 1. Test Results: [] Emergency Department Course and Treatment: Neurologist on page to discuss starting IV steroids and what dose. I will speak to the hospitalist about admission. A chemistry panel is being obtained just for baseline to the IV steroids and her having a history of diabetes. I spoke with the neurologist and he requested the patient be started on Solu- Medrol IV 1 g which is been ordered. Treatment Plan: IV steroids for the treatment of optic neuritis. The hospitalist spoke to both primary care physician and neurologist to set up outpatient IV steroid therapy and follow-up imaging. Disposition: dc Impression: Headache and right eye visual change secondary to recurrent optic neuritis This note was generated with [employer] dictation software. It may contain incorrect words, spelling, and punctuation that were not noted in review of the chart prior to signing ED Disposition - Plan for ED Patient: Referrals: Pk Amor MD [Primary Care Provider] -
--- NOTE | 2018-11-26 18:20 | CASEMGMT ---
RN CM Assessment Introduced role of RN CM to patient.? Patient is alert, oriented and able?to participate in RN CM Assessment. ?Care providers, pharmacy, and demographics verified. Presentation: x1 week with mild WOODRUFF, Visual Change Rt eye Re-Admit: No Barriers/Issues: None PCP: Pk Amor Specialists: Neuro- Dr Gamble, Neuro Surgeon- Dr Mann Preferred Pharmacy: [facility] Insurance: [place] [facility] Benefit: Yes? LNOK: Father Ashia Crowe LW/HPOA: No, Would like Information Living Arrangements:?Lives with her kids in a SS home, 2 steps to enter ADL?s: Independent with ADL's and ambulation Transportation: Patient drives, drove self to hospital and plans to drive on [place] DME: CPAP HHC: None SNF: None Goal: Home, does not think will have any needs, denies questions/concerns at this time DC PLAN: Home with no anticipated needs identified at this time. Cassius Capellan RNCM
--- NOTE | 2018-11-26 18:40 | ED.DEP ---
ED Disposition - Plan for ED Patient: Disposition: Home or Assisted Living Referrals: Pk Amor MD [Primary Care Provider] - 1 Day Additional Instructions: Follow-up with primary care physician Dr. Pk Amor tomorrow. They will set up the outpatient home IV steroid infusions. Follow-up with your neurologist for outpatient imaging and a prescription for tapering steroids after the initial IV infusions.
[2018-11-26 18:45] LABS: Anion Gap 5 (5-15); BUN 16 mg/dL (7-18); BUN/Creat Ratio 12.7 RATIO (10-20); Calcium,Total 8.2 mg/dL (8.5-10.1); Chloride 110 mmol/L (98-107); Creatinine, Serum 1.26 mg/dL (0.55-1.02); EST Glomerular Filtration Rate 49 mL/min (>60); Est Glom Filt Rate - Afr Amer 60 mL/min (>60); Glucose 100 mg/dL (74-106); Potassium 3.6 mmol/L (3.5-5.1); Sodium Level 142 mmol/L (136-145)
[2018-11-26 19:00] VITALS: RESP 18
[2018-11-26 20:02] VITALS: PULSE 78; RESP 18; O2SAT 99
--- NOTE | 2018-11-26 20:03 | ED.RN ---
PT IS BEING DC'D W/IV INTACT IN EXPECTATION OF AN INFUSION TOMORROW. OK'D BY DR JOHNSON, DR SALGADO. ED CHARGE RNS AWARE.
== END 2018-11-26 20:04 | disposition home or self-care (01) ==
PROVIDERS: Emergency Provider Emergency Medicine; Family Provider Family Medicine; PCP Family Medicine
DX: H46.9 Unspecified optic neuritis (principal); E11.9 Type 2 diabetes mellitus without complications; I10 Essential (primary) hypertension
CPT/HCPCS: 80048; 96365; 99284; J7030; A4216; J2930

== ENCOUNTER → 2018-11-27 11:19 | Outpatient (CLI) | payer BC, SELFPAY ==
[2018-11-26 17:33] VITALS: BMI 36.1
[2018-11-27 11:00] VITALS: BP 149/88; PULSE 110; RESP 16; TEMP 37.1; O2SAT 99; BMI 34.9
== END ==
PROVIDERS: Family Provider Family Medicine; PCP Family Medicine; Referring Provider Family Medicine; Visit Provider Family Medicine
DX: H46.9 Unspecified optic neuritis (principal)
CPT/HCPCS: 96365; J7050; A4216; J2930

== ENCOUNTER → 2018-11-28 15:28 | Outpatient (CLI) | payer BC, SELFPAY ==
[2018-11-27 11:00] VITALS: BMI 34.9
[2018-11-28 15:42] VITALS: BP 130/82; PULSE 74; RESP 16; TEMP 36.9; BMI 34.9
== END ==
PROVIDERS: Family Provider Family Medicine; PCP Family Medicine; Referring Provider Family Medicine; Visit Provider Family Medicine
DX: H46.9 Unspecified optic neuritis (principal)
CPT/HCPCS: 96365; J7050; A4216; J2930

== ENCOUNTER → 2018-11-29 15:32 | Outpatient (CLI) | payer BC, SELFPAY ==
[2018-11-27 11:00] VITALS: BMI 34.9
[2018-11-28 15:42] VITALS: BMI 34.9
[2018-11-29 15:43] VITALS: BP 144/93; PULSE 72; RESP 16; TEMP 36.8; O2SAT 95
== END ==
PROVIDERS: Family Provider Family Medicine; PCP Family Medicine; Referring Provider Family Medicine; Visit Provider Family Medicine
DX: H46.9 Unspecified optic neuritis (principal)
CPT/HCPCS: 96365; J7050; A4216; J2930

== ENCOUNTER 2018-11-30 11:33 | Outpatient (CLI) | payer BC, SELFPAY ==
[2018-11-27 11:00] VITALS: BMI 34.9
[2018-11-30 12:04] VITALS: BP 147/78; PULSE 67; RESP 18; TEMP 36.8
== END 2018-11-30 13:05 | disposition home or self-care (01) ==
LOC: MEDOUTP 11:34 → MS3 11:38
PROVIDERS: Family Provider Family Medicine; PCP Family Medicine; Referring Provider Family Medicine; Visit Provider Family Medicine
DX: H46.9 Unspecified optic neuritis (principal)
CPT/HCPCS: 96365; J2930

== ENCOUNTER → 2018-12-02 16:26 | Outpatient (CLI) | payer BC, SELFPAY ==
[2018-12-02 17:59] LABS: Absolute Lymphocyte Count 1.27 X10^3/ul (0.83-4.51); Basophil# 0.01 X10^3/uL; Basophil% 0.1 % (0-1); Eosinophil# 0.01 X10^3/uL; Eosinophils% 0.1 % (0-5); Hematocrit 41.5 % (37-47); Lymphocyte # 1.27 X10^3/ul (4.0); Lymphocyte % 9.6 % (19-41); Mean Corp Hgb Conc 33.7 g/gl (32-36); Mean Corpuscular Hgb 29.2 pg (27.0-32.0); Mean Corpuscular Volume 86.6 fL (81-99); Mean Platelet Vol. 9.9 fl (6.2-12.0); Monocyte# 0.65 X10^3/uL; Monocyte% 4.9 % (0-10); Neutrophil # 10.98 X10^3/uL (2.7-7.7); Neutrophil % 82.9 % (47-70); Platelet Count 264 K/mm3 (150-450); RBC Distribution Width CV 13.3 % (11.6-14.6); RBC Distribution Width SD 41.5 fl (35.1-43.9); Red Blood Count 4.79 M/mm3 (4.2-5.4); White Blood Count 13.2 K/mm3 (4.4-11.0)
[2018-12-02 18:01] LABS: ALB/GLOB Ratio 1.1 RATIO (0.9-2.4); AST(SGOT) 11 U/L (15-37); Alanine Aminotransfer ALT/SGPT 47 U/L (13-56); Albumin, Serum 3.3 g/dL (3.2-5.0); Alkaline Phosphatase 83 U/L (45-117); Anion Gap 9 (5-15); BUN 21 mg/dL (7-18); Calcium,Total 8.1 mg/dL (8.5-10.1); Chloride 102 mmol/L (98-107); Creatinine, Serum 0.95 mg/dL (0.55-1.02); EST Glomerular Filtration Rate 68 mL/min (>60); Est Glom Filt Rate - Afr Amer 82 mL/min (>60); Glucose 147 mg/dL (74-106); Potassium 3.6 mmol/L (3.5-5.1); Protein, Total 6.3 g/dL (6.4-8.2); Sodium Level 141 mmol/L (136-145)
[2018-12-02 18:03] LABS: POSITIVE COUNT YES; POSITIVE DIFFERENTIAL NO; POSITIVE MORPHOLOGY YES
[2018-12-03 14:46] LABS: Pathologist Review Reviewed
== END ==
PROVIDERS: Family Provider Family Medicine; PCP Family Medicine; Visit Provider Family Medicine
DX: E88.81 Metabolic syndrome and other insulin resistance (principal)
CPT/HCPCS: 36415; 80053; 85025

== ENCOUNTER → 2018-12-09 15:14 | Outpatient (CLI) | payer BC, SELFPAY ==
[2018-12-09 17:52] LABS: ALB/GLOB Ratio 1.1 RATIO (0.9-2.4); AST(SGOT) 17 U/L (15-37); Alanine Aminotransfer ALT/SGPT 47 U/L (13-56); Albumin, Serum 3.7 g/dL (3.2-5.0); Alkaline Phosphatase 78 U/L (45-117); Anion Gap 7 (5-15); BUN 20 mg/dL (7-18); BUN/Creat Ratio 24.2 RATIO (10-20); Chloride 101 mmol/L (98-107); Creatinine, Serum 0.83 mg/dL (0.55-1.02); EST Glomerular Filtration Rate 80 mL/min (>60); Est Glom Filt Rate - Afr Amer 97 mL/min (>60); Globulin 3.4 g/dL (2.2-4.2); Glucose 114 mg/dL (74-106); Potassium 4.4 mmol/L (3.5-5.1); Protein, Total 7.1 g/dL (6.4-8.2); Sodium Level 138 mmol/L (136-145)
[2018-12-09 18:07] LABS: Absolute Lymphocyte Count 1.19 X10^3/ul (0.83-4.51); Absolute Neutrophil Count 17.3 X10^3/uL (2.0-7.7); Basophil# 0.01 X10^3/uL; Basophil% 0.1 % (0-1); Eosinophil# 0.04 X10^3/uL; Eosinophils% 0.2 % (0-5); Hematocrit 46.3 % (37-47); Hemoglobin 15.1 g/dl (12.0-15.0); Lymphocyte # 1.19 X10^3/ul (4.0); Lymphocyte % 6.1 % (19-41); Mean Corp Hgb Conc 32.6 g/gl (32-36); Mean Corpuscular Hgb 29.3 pg (27.0-32.0); Mean Corpuscular Volume 89.7 fL (81-99); Mean Platelet Vol. 9.9 fl (6.2-12.0); Monocyte# 0.71 X10^3/uL; Monocyte% 3.6 % (0-10); Neutrophil # 17.33 X10^3/uL (2.7-7.7); Neutrophil % 89.1 % (47-70); POSITIVE COUNT NO; POSITIVE DIFFERENTIAL NO; POSITIVE MORPHOLOGY NO; Platelet Count 336 K/mm3 (150-450); RBC Distribution Width CV 15.1 % (11.6-14.6); RBC Distribution Width SD 48.9 fl (35.1-43.9); Red Blood Count 5.16 M/mm3 (4.2-5.4); White Blood Count 19.5 K/mm3 (4.4-11.0)
[2018-12-10 10:00] LABS: Hemoglobin A1c 5.9 % (4.2-6.3)
== END ==
PROVIDERS: Family Provider Family Medicine; PCP Family Medicine; Visit Provider Family Medicine
DX: E88.81 Metabolic syndrome and other insulin resistance (principal)
CPT/HCPCS: 36415; 80053; 83036; 85025

== ENCOUNTER → 2018-12-13 13:13 | Outpatient (CLI) | payer BC, SELFPAY ==
--- NOTE | 2018-12-13 13:12 | MRI_ITS ---
STUDY: MRI BRAIN WITH AND WITHOUT CONTRAST REASON FOR EXAM: Female, 43 years old. Optic neuritis with blurred vision in the right eye. TECHNIQUE: Standardized multiplanar fat and water weighted pulse sequences were obtained. 20ml IV Dotarem was administered for the contrast portion of the examination. COMPARISON: None. FINDINGS: Normal size of the ventricles and extra-axial spaces for the patient's age. Normal white matter tracts of the supratentorial brain. There is no evidence for recent intracranial ischemia or other cause of cytotoxic edema on diffusion weighted imaging (DWI). Normal T2* images of the brain without demonstrated susceptibility artifact. There is no demonstrated hemosiderin stain. Normal bilateral basal ganglia. Normal thalami. There is no extra-axial fluid accumulation. Normal flow voids within the major intracranial circulation suggesting patency by spin echo criteria. Normal venous enhancement. There is no enhancing intra-axial or extra-axial abnormality. Normal sella turcica, pituitary gland, infundibular stalk, optic chiasm and hypothalamus. Normal tectal plate and pineal gland. Normal midbrain, layton and medulla. Normal cerebellum. Normal basal cisterns. Normal bilateral temporal bones. Normal bilateral internal auditory canals. No demonstrated orbital abnormality, within the constraints of a routine brain study. Normal visualized paranasal sinuses. Normal calvarium and skull base. Normal visualized soft tissue structures. Normal visualized upper cervical spine. IMPRESSION: No evidence of acute intracranial bleed, mass or ischemia. Electronically Signed: Sadi Cross DO at 11:49 EDT , Service support , STUDY: MRI ORBITS WITHOUT CONTRAST REASON FOR EXAM: Female, 43 years old. Optic neuritis with blurred vision of the right eye. TECHNIQUE: Standardized multiplanar fat and water weighted pulse sequences were obtained. COMPARISON: None. FINDINGS: Normal bilateral globes. Normal bilateral optic nerve sheath complexes and optic nerves. Normal bilateral intraconal and extraconal spaces. Normal bilateral extraocular muscles. Normal optic chiasm and post-chiasmatic tracts. Normal sella turcica, pituitary gland, infundibular stalk, and hypothalamus. Normal bilateral cavernous sinuses. Normal tectal plate and pineal gland. Normal flow voids within the major intracranial circulation suggesting patency by spin echo criteria. Normal size of the ventricles and extra-axial spaces for the patient's age. Normal white matter tracts of the supratentorial brain. Normal bilateral basal ganglia. Normal thalami. There is no extra-axial fluid accumulation. Normal midbrain, layton and medulla. Normal cerebellum. Normal basal cisterns. MRI/Brain W/WO Contrast IMPRESSION: No evidence of right optic nerve enhancement or signal abnormality to suggest active inflammatory process. No evidence of acute right orbital pathology. Electronically Signed: Sadi Cross DO at 11:50 EDT , Service support ,
== END ==
PROVIDERS: Family Provider Family Medicine; PCP Family Medicine; Referring Provider Psychiatry & Neurology Neurology; Visit Provider Psychiatry & Neurology Neurology
DX: G36.0 Neuromyelitis optica [Devic] (principal)
CPT/HCPCS: 70553; A9575

== ENCOUNTER → 2019-01-04 07:35 | Outpatient (CLI) | payer BC, SELFPAY ==
--- NOTE | 2019-01-04 07:39 | BI_ITS ---
MAMMOGRAPHY - BILATERAL SCREENING REASON FOR EXAM: Female, 43 years old. Routine annual screening examination. PERTINENT HISTORY: Non-contributory. TECHNIQUE: Digital bilateral breast tamara (3D mammographic acquisition) in the CC and MLO projections. 2-D mediolateral oblique (MLO) and craniocaudad (CC) views of both breasts were obtained. CAD: Full Field Digital Mammography with Computer Added Detection was performed. COMPARISON: None. Baseline examination. FINDINGS: Breast Composition: The breasts are heterogeneously dense, which may obscure small masses. There are no dominant masses or suspicious calcifications. Benign appearing bilateral axillary lymph nodes. No other significant abnormalities are identified. BI/SCREEN MAMM (CAD) W/TAMARA BILAT IMPRESSION: Negative screening mammogram. Yearly followup mammogram recommended. (A) ASSESSMENT CATEGORY: BIRADS Category 2: Benign. A letter regarding these results will be sent to the patient by the facility within 30 days. Approximately 10% of breast cancers are not detected by mammography. A normal mammogram should not delay biopsy of a clinically suspicious abnormality. [id number] Electronically Signed: Pito Hagan, at 8:44 EDT , Service support ,
== END ==
PROVIDERS: Family Provider Family Medicine; PCP Family Medicine
DX: Z12.31 Encounter for screening mammogram for malignant neoplasm of breast (principal)
CPT/HCPCS: 77063; 77067

== ENCOUNTER → 2019-07-24 06:26 | Outpatient (CLI) | payer BC, SELFPAY ==
--- NOTE | 2019-07-24 06:37 | MRI_ITS ---
STUDY: MRI BRAIN WITH AND WITHOUT CONTRAST REASON FOR EXAM: Female, 43 years old. optic neuritis, paresthesia; follow up to prev MRIs, pt c/o of no symptoms currently TECHNIQUE: Standardized multiplanar fat and water weighted pulse sequences were obtained. Dotarem IV 20ml was administered for the contrast portion of the examination. COMPARISON: 12/13/2018 FINDINGS: Normal size of the ventricles and extra-axial spaces for the patient''s age. No change in the punctate hyperintensities in the periventricular and subcortical white matter consistent with known demyelinating disease (multiple sclerosis). No contrast enhancement of the plaques. There is no evidence for recent intracranial ischemia or other cause of cytotoxic edema on diffusion weighted imaging (DWI). Normal T2* images of the brain without demonstrated susceptibility artifact. There is no demonstrated hemosiderin stain. Normal bilateral basal ganglia. Normal thalami. There is no extra-axial fluid accumulation. Normal flow voids within the major intracranial circulation suggesting patency by spin echo criteria. Normal venous enhancement. There is no enhancing intra-axial or extra-axial abnormality. Normal sella turcica, pituitary gland, infundibular stalk, optic chiasm and hypothalamus. Normal tectal plate and pineal gland. Normal midbrain, layton and medulla. Normal cerebellum. Normal basal cisterns. Normal bilateral temporal bones. Normal bilateral internal auditory canals. No demonstrated orbital abnormality, within the constraints of a routine brain study. Normal visualized paranasal sinuses. Normal calvarium and skull base. Normal visualized soft tissue structures. Normal visualized upper cervical spine. MRI/Brain W/WO Contrast IMPRESSION: No change from 12/13/2018. Electronically Signed: Rob Mendez MD at 11:49 EST Tel , Service support ,
== END ==
PROVIDERS: Family Provider Family Medicine; PCP Family Medicine; Referring Provider Internal Medicine; Visit Provider Internal Medicine
DX: H46.9 Unspecified optic neuritis (principal); R20.2 Paresthesia of skin
CPT/HCPCS: 70553; A9575

== ENCOUNTER → 2020-02-27 10:30 | Outpatient (CLI) | payer BC, SELFPAY ==
[2020-02-27 12:45] LABS: Absolute Neutrophil Count 4.3 X10^3/uL (2.0-7.7); Basophil# 0.03 X10^3/uL; Basophil% 0.5 % (0-1); Eosinophil# 0.15 X10^3/uL; Eosinophils% 2.4 % (0-5); Hematocrit 43.9 % (37-47); Hemoglobin 14.1 g/dL (12.0-15.0); Lymphocyte % 23.8 % (19-41); Mean Corp Hgb Conc 32.1 g/dL (32-36); Mean Corpuscular Hgb 29.3 pg (27.0-32.0); Mean Corpuscular Volume 91.1 fL (81-99); Mean Platelet Vol. 9.5 fl (6.2-12.0); Monocyte# 0.28 X10^3/uL; Monocyte% 4.5 % (0-10); NRBC Flagged by Analyzer 0 % (0-5); Neutrophil # 4.32 X10^3/uL (2.7-7.7); Neutrophil % 68.6 % (47-70); Platelet Count 307 K/mm3 (150-450); RBC Distribution Width CV 12.7 % (11.6-14.6); RBC Distribution Width SD 42.2 fl (35.1-43.9); Red Blood Count 4.82 M/mm3 (4.2-5.4); White Blood Count 6.3 K/mm3 (4.4-11.0)
[2020-02-27 13:08] LABS: ALB/GLOB Ratio 1.1 RATIO (0.9-2.4); AST(SGOT) 14 U/L (15-37); Alanine Aminotransfer ALT/SGPT 25 U/L (13-56); Albumin, Serum 3.8 g/dL (3.2-5.0); Alkaline Phosphatase 90 U/L (45-117); Anion Gap 5 (5-15); BUN 12 mg/dL (7-18); BUN/Creat Ratio 12.2 RATIO (10-20); Calcium,Total 8.7 mg/dL (8.5-10.1); Chloride 105 mmol/L (98-107); Cholesterol 217 mg/dL (200); Creatinine, Serum 0.98 mg/dL (0.55-1.02); EST Glomerular Filtration Rate 65 mL/min (>60); Est Glom Filt Rate - Afr Amer 79 mL/min (>60); Globulin 3.6 g/dL (2.2-4.2); Glucose 94 mg/dL (74-106); High Density Lipoprotein 37 mg/dL; Potassium 3.8 mmol/L (3.5-5.1); Protein, Total 7.4 g/dL (6.4-8.2); Sodium Level 139 mmol/L (136-145); Thyroid Stim Hormone (TSH) 3.08 uIU/mL (0.358-3.74); Triglycerides 283 mg/dL; Very Low Density Lipoprotein 57 mg/dL (5-40)
== END ==
PROVIDERS: PCP Family Medicine; Referring Provider Family Medicine; Visit Provider Family Medicine
DX: E03.9 Hypothyroidism, unspecified (principal); E88.81 Metabolic syndrome and other insulin resistance; I10 Essential (primary) hypertension
CPT/HCPCS: 36415; 80053; 80061; 84443; 85025

== ENCOUNTER → 2020-06-08 16:17 | Outpatient (CLI) | payer BC, SELFPAY | PROVIDERS: PCP Family Medicine; Referring Provider Family Medicine; Visit Provider Family Medicine | DX: Z20.828 Contact with and (suspected) exposure to other viral communicable diseases (principal) | CPT/HCPCS: 87635; U0003 ==

== ENCOUNTER → 2020-06-14 13:50 | Outpatient (CLI) | payer BC, SELFPAY | PROVIDERS: PCP Family Medicine; Visit Provider Family Medicine | DX: Z20.828 Contact with and (suspected) exposure to other viral communicable diseases (principal) | CPT/HCPCS: 87635; U0003 ==

== ENCOUNTER → 2020-08-28 08:43 | Outpatient (CLI) | payer BC, SELFPAY ==
[2020-08-23 15:12] VITALS: BMI 46.3
--- NOTE | 2020-08-28 08:45 | BI_ITS ---
MAMMOGRAPHY - BILATERAL SCREENING REASON FOR EXAM: Female, 45 years old. Routine annual screening examination. PERTINENT HISTORY: Non-contributory. TECHNIQUE: Digital bilateral breast tamara (3D mammographic acquisition) in the CC and MLO projections. 2-D mediolateral oblique (MLO) and craniocaudad (CC) views of both breasts were obtained. CAD: Full Field Digital Mammography with Computer Added Detection was performed. COMPARISON: Comparison is made with prior examination dated 01/04/2019. FINDINGS: Breast Composition: The breasts are heterogeneously dense, which may obscure small masses. There are no dominant masses or suspicious calcifications. Stable benign-appearing bilateral axillary lymph nodes. No other significant abnormalities are identified. There has been no significant change since the prior study. BI/SCRN MAMM (CAD)W/TAMARA BILAT IMPRESSION: Stable bilateral screening mammogram. Yearly follow-up mammogram recommended. (A) ASSESSMENT CATEGORY: BIRADS Category 2: Benign. A letter regarding these results will be sent to the patient by the facility within 30 days. Approximately 10% of breast cancers are not detected by mammography. A normal mammogram should not delay biopsy of a clinically suspicious abnormality. [id number] Electronically Signed: Pito Hagan MD at 8:20 EST , Service support ,
== END ==
PROVIDERS: PCP Family Medicine; Referring Provider Obstetrics & Gynecology; Visit Provider Obstetrics & Gynecology
DX: Z12.31 Encounter for screening mammogram for malignant neoplasm of breast (principal)
CPT/HCPCS: 77063; 77067

== ENCOUNTER → 2020-09-06 09:45 | Outpatient (CLI) | payer BC, SELFPAY ==
[2020-08-23 15:12] VITALS: BMI 46.3
[2020-09-06 12:38] LABS: Anion Gap 7 (5-15); BUN 17 mg/dL (7-18); Chloride 103 mmol/L (98-107); Cholesterol 231 mg/dL (200); Creatinine, Serum 1.06 mg/dL (0.55-1.02); EST Glomerular Filtration Rate 60 mL/min (>60); Est Glom Filt Rate - Afr Amer 72 mL/min (>60); Glucose 101 mg/dL (74-106); High Density Lipoprotein 48 mg/dL; Potassium 3.9 mmol/L (3.5-5.1); Sodium Level 137 mmol/L (136-145); Triglycerides 238 mg/dL; Very Low Density Lipoprotein 48 mg/dL (5-40)
== END ==
PROVIDERS: PCP Family Medicine; Visit Provider Family Medicine
DX: E78.00 Pure hypercholesterolemia, unspecified (principal); R73.01 Impaired fasting glucose
CPT/HCPCS: 36415; 80048; 80061

== ENCOUNTER 2020-09-14 10:33 | Day surgery (SDC) | payer BC, SELFPAY ==
[2020-09-06 13:55] VITALS: BMI 47.2
[2020-09-14] MEDS: Lactated Ringers 1,000 ML 100 ML IV (11:17)
[2020-09-14 11:18] VITALS: BP 125/74; PULSE 86; RESP 16; TEMP 37.2; O2SAT 96; BMI 45.6
[2020-09-14 11:21] LABS: Hematocrit 44.7 % (37-47); Hemoglobin 14.3 g/dL (12.0-15.0); Mean Corpuscular Hgb 28.9 pg (27.0-32.0); Mean Corpuscular Volume 90.5 fL (81-99); Mean Platelet Vol. 8.8 fl (6.2-12.0); Platelet Count 302 K/mm3 (150-450); RBC Distribution Width CV 13.3 % (11.6-14.6); RBC Distribution Width SD 43.6 fl (35.1-43.9); Red Blood Count 4.94 M/mm3 (4.2-5.4); White Blood Count 9.1 K/mm3 (4.4-11.0)
[2020-09-14 11:27] LABS: Internal QC Validated? YES +Cl - CLEAR BKGD; Pregnancy, Urine Negative Negative
--- NOTE | 2020-09-14 12:13 | HP.PCM_ITS ---
- Problem List (1) Encounter for IUD insertion Status: Acute (2) Abnormal uterine bleeding (AUB) Status: Acute History and Physical Date of Admission: 09/14/20 Intake Vital Signs 09/06/20 Height 5 ft 4 in 09/06/20 Weight: 275 lb 6 oz 09/06/20 BP 120/86 H Intake Visit Reasons: IUD REPLACEMENT Car Runner Required: No Is patient in pain?: No Allergies ampicillin Allergy (Verified 09/06/20 13:56) Shortness of breath Sulfa (Sulfonamide Antibiotics) Allergy (Verified 09/06/20 13:56) Rash Medications Lisinopril [Zestril] 10 mg PO DAILY 06/28/18 [History Confirmed 09/06/20] metFORMIN HCl [Glucophage] 500 mg PO DAILY 06/28/18 [History Confirmed 09/06/20] Bupropion HCl [Bupropion Xl] 300 mg PO DAILY 11/26/18 [History Confirmed 09/06/20] Levothyroxine Sodium 25 mcg PO DAILY 11/26/18 [History Confirmed 09/06/20] cetirizine 10 mg tablet 10 mg PO DAILY 08/23/20 [History Confirmed 09/06/20] ergocalciferol (vitamin D2) 1,250 mcg (50,000 unit) capsule 1,250 mcg PO QWEEK 08/23/20 [History Confirmed 09/06/20] glycopyrrolate 2 mg tablet 2 mg PO TID 08/23/20 [History Confirmed 09/06/20] pyridoxine (vitamin B6) 100 mg tablet 100 mg PO DAILY 08/23/20 [History Confirmed 09/06/20] Post menopausal: No Patient : No : No PFSH PFSH Medical History Metabolic syndrome (Chronic) Depression with anxiety (Acute) Hypertension (Chronic) Excessive sweating (Acute) Surgical History S/P carpal tunnel release (Resolved) S/P dilation and curettage (Resolved) s/p decompression (Resolved) Social History (Updated 09/06/20 @ 16:[address] Yesenia Reid MD) adopted: Yes Smoking Status: Never smoker alcohol intake: never substance use type: does not use caffeine: Yes what type of physical activity do you participate in: none seatbelt use: always do you feel safe at home: Yes additional social history: Pregancy History 3 Elective abortions Hx Para 2 Spontaneous abortions Hx # Term Pregnancies Ectopic pregnancies Hx # Pregnancies Multiple births # of living children 2 Past Pregnancies Del. Date Name GA/Weeks Outcome [facility] Riky Unknown Jonnie HPI IUD REPLACEMENT: Details: PAM MENDEZ is a 45 year old who presents for IUD removal and replacement. ROS Const Constitutional: Denies chills, fatigue or fever(s) : Denies genital lesions, genital itching, blood in urine, pelvic pain, urinary urgency, vaginal discharge, vaginal dryness, vaginal odor or vaginal itching Exam Const General: cooperative, healthy appearing, comfortable, no acute distress, well developed, well groomed Nutritional Appearance: average body habitus, well nourished Orientation: alert, awake, oriented x3 HENMT Head: normal to inspection, normocephalic, atraumatic Eyes Pupils: PERRL, accommodation normal EOM: EOM intact bilaterally Resp Effort & Inspection: normal respiratory effort, able to speak in complete sentences GI Inspection: normal to inspection, non-distended Palpation: soft, no guarding, no masses, not rigid, nontender General: bladder normal to palpation External Female Exam: normal external appearance, normal appearance of the urethra, no erythema, no tenderness externally, no lesions, No lesion of urethra Urethra: normal appearance of the urethra, no lesions Speculum Exam - Vagina: normal appearance of the vagina, normal vaginal discharge, normal vaginal discharge, not erythematous, no lacerations, no lesions, No vaginal bleeding, no masses, no swelling, nontender Speculum Exam - Cervix: normal appearance of the cervix, no cervical discharge, no lesions, no masses, nontender Bimanual Exam- Vagina & Uterus: bladder normal to palpation, No cervical tenderness OB/External & Speculum: No vaginal bleeding Speculum Exam: no vaginal bleeding Neuro General: alert, awake, oriented x3, CN's II-XI intact bilaterally Cranial Nerves: PERRL, accommodation normal, EOM intact bilaterally Cognition: normal cognition Speech: speech normal Gait: normal gait Psych Appearance: grossly normal Mental Status: mental status grossly normal Mood: congruent mood Affect: normal affect Speech and Movement: speech and movement normal Attitude: cooperative Thought Process: normal Thought Content: normal Judgment: judgment good Office Procedures IUD Removal IUD Removal Details: Sign out documentation: Completed Procedure: Speculum placed in vagina, IUD string visualized and grasped with ring forceps. IUD easily removed in its entirety and patient tolerated well. Mirena IUD IUD GC/Chlamydia:: not done Test: Yes Negative Consent Signed: Yes Time out checklist: patient, procedure, site marked/identified, positioning of patient, supplies available, allergies confirmed, team agrees on procedure IUD: Yes Mirena Details: Sign in Communication: Completed Sign out documentation: Completed Cervix was grasped with a single-tooth tenaculum. On initial attempt, the uterine sound was not able to pass through the cervix. Small uterine dilators were attempted, but still could not successfully passed through the cervix to be due to severe cervical stenosis. The procedure was aborted. All instruments were removed from the vagina. Office Meds levonorgestrel Performing Provider: Yesenia Reid MD Documented (not given) by: Yesenia Reid MD on 09/06/20 16:44 Reason Not Given: Patient Contraindications Assessment & Plan 1. Encounter for IUD removal and reinsertion Z30.433 Plan Patient presents for IUD removal and reinsertion. IUD successfully removed, however cervical stenosis noted and if unable to successfully replace IUD. Plan for IUD insertion under anesthesia. The risks, benefits, indications, and alternatives to the procedure were discussed with the patient including bleeding, infection, and damage to surrounding structures following uterine perforation. Patient aware that if her uterus were to be perforated, she could require laparoscopy or laparotomy in order to repair any damage. Patient voices understanding and agrees to proceed. Will schedule for IUD insertion as soon as possible. UPDATE- I have seen the patient and performed any clinically relevant updates to the history and physical exam. Yesenia Reid MD
--- NOTE | 2020-09-14 12:18 | OP.PCM_ITS ---
Problem List (1) Encounter for IUD insertion Status: Acute (2) Abnormal uterine bleeding (AUB) Status: Acute Report of Operation Date of Procedure: 09/14/20 Pre-Operative Diagnosis: AUB, Failed office IUD insertion Post-Operative Diagnosis: same Surgery/Procedure Performed:: Liletta IUD insertion Description of Surgical Findings:: Normal appearing cervix. Uterus sounding to 9cm building services coordinator: None Type of Anesthesia:: MAC Estimated Blood Loss (mL): 5 Description of Procedure: The patient was taken to the operating room where anesthesia was obtained without difficulty. She was prepped and draped in the dorsal lithotomy position with yellofin stirrups. A weighted speculum was placed in the posterior aspect of the vagina and the cervix was grasped with a single-tooth tenaculum. Significant prolapse was noted that made retraction difficult. The uterus sounded to 9cm. The IUD was inserted without difficulty using the insertion device. Strings were trimmed to 3cm. The procedure was deemed complete. All instruments were removed from the vagina. The tenaculum sites were hemostatic. The patient was awakened from anesthesia and taken to the recovery area. - Complications None - Admit VTE Documentation VTE Present on Admission: No VTE Mechan Device Prophylaxis: SCD's VTE Pharm Prophylaxis ordered?: No Multi Select Codes - Urinary/Genital Urinary/Genital CPT Codes: 32280 Insert IUD
--- NOTE | 2020-09-14 12:19 | PCM.DC.D&C ---
Discharge Diet: No Restrictions Discharge Activity: Return to Normal Activity, May Shower, May Take a Tub Bath - in 2 weeks. Allergies/Adverse Reactions: Allergies ampicillin Allergy (Verified 09/14/20 10:47) Shortness of breath Sulfa (Sulfonamide Antibiotics) Allergy (Verified 09/14/20 10:47) Rash Medications to take at Discharge Lisinopril [Zestril] 10 mg PO DAILY 06/28/18 metFORMIN HCl [Glucophage] 500 mg PO DAILY 06/28/18 Bupropion HCl [Bupropion Xl] 300 mg PO DAILY 11/26/18 Levothyroxine Sodium 25 mcg PO DAILY 11/26/18 cetirizine 10 mg tablet 10 mg PO DAILY 08/23/20 glycopyrrolate 2 mg tablet 2 mg PO DAILY 08/23/20 pyridoxine (vitamin B6) 100 mg tablet 100 mg PO DAILY 08/23/20 Cholecalciferol (Vitamin D3) [Vitamin D3] 50 mcg PO DAILY 09/09/20 Orders to be completed after discharge: Type & Screen - PAT ONLY Time Frame: 09/14/20, Facility: [facility], Location: Laboratory Primary Care Physician: Pk Amor MD [Primary Care Provider] - Test Results: Test results from this visit will be discussed in further detail at your follow-up appointment, if applicable.
[2020-09-14] MEDS: Levonorgestrel IUD (Liletta) 1 EACH INTRA-UTER (13:01)
[2020-09-14 13:10] VITALS: BP 116/82; BP 125/74; PULSE 85; RESP 16; TEMP 36.6; O2SAT 99
[2020-09-14 13:16] VITALS: BP 120/78; BP 125/74; PULSE 86; RESP 16; O2SAT 99
[2020-09-14 13:20] VITALS: BP 114/77; BP 125/74; PULSE 84; RESP 16; O2SAT 100
[2020-09-14 13:25] VITALS: BP 114/72; BP 125/74; PULSE 83; RESP 16; TEMP 36.7; O2SAT 99
[2020-09-14 13:46] VITALS: BP 125/74
== END 2020-09-14 13:45 | disposition home or self-care (01) ==
LOC: SDC 10:34 → AC 10:35
PROVIDERS: Anesthesiology; PCP Family Medicine; Referring Provider Obstetrics & Gynecology; Visit Provider Obstetrics & Gynecology
PROC: (CPT 58120; principal; 2020-09-14 11:55)
DX: Z30.433 Encounter for removal and reinsertion of intrauterine contraceptive device (principal); Z79.84 Long term (current) use of oral hypoglycemic drugs; Z88.2 Allergy status to sulfonamides; N93.9 Abnormal uterine and vaginal bleeding, unspecified; E88.81 Metabolic syndrome and other insulin resistance; I10 Essential (primary) hypertension
CPT/HCPCS: 58300; 81025; 85027; 86850; 86900; 86901; 87426; C9803; J7120; J2405

== ENCOUNTER → 2021-01-05 14:35 | Outpatient (CLI) | payer BC, SELFPAY ==
[2021-01-05 17:53] LABS: Erythrocyte Sedimentation Rate 14 mm/hr (0-30)
[2021-01-05 18:02] LABS: AST(SGOT) 37 U/L (15-37); Alanine Aminotransfer ALT/SGPT 71 U/L (13-56); Alkaline Phosphatase 94 U/L (45-117); Anion Gap 6 (5-15); BUN 14 mg/dL (7-18); BUN/Creat Ratio 10.7 RATIO (10-20); CRP 9.35 mg/L (0.0-3.0); Calcium,Total 9.3 mg/dL (8.5-10.1); Chloride 102 mmol/L (98-107); Creatinine, Serum 1.31 mg/dL (0.55-1.02); EST Glomerular Filtration Rate 47 mL/min (>60); Est Glom Filt Rate - Afr Amer 56 mL/min (>60); Globulin 4.1 g/dL (2.2-4.2); Glucose 120 mg/dL (74-106); Potassium 3.9 mmol/L (3.5-5.1); Protein, Total 8.1 g/dL (6.4-8.2); Sodium Level 136 mmol/L (136-145)
[2021-01-07 16:53] LABS: ANTINUCLEAR ANTIBODIES DIRECT Negative (Negative)
== END ==
PROVIDERS: PCP Family Medicine; Referring Provider Family Medicine; Visit Provider Family Medicine
DX: R10.84 Generalized abdominal pain (principal)
CPT/HCPCS: 36415; 80053; 85652; 86038; 86140; 87177; 87209; 87493

== ENCOUNTER → 2021-04-19 10:43 | Outpatient (CLI) | payer BC, SELFPAY | PROVIDERS: PCP Family Medicine; Visit Provider Family Medicine | DX: U07.1 COVID-19 (principal); Z20.828 Contact with and (suspected) exposure to other viral communicable diseases | CPT/HCPCS: 87635; U0005; U0003 ==

== ENCOUNTER → 2021-05-23 16:37 | Outpatient (CLI) | payer BC, SELFPAY ==
[2021-05-23 17:41] LABS: Absolute Lymphocyte Count 2.13 X10^3/uL (0.83-4.51); Absolute Neutrophil Count 6.7 X10^3/uL (2.0-7.7); Basophil# 0.03 X10^3/uL; Basophil% 0.3 % (0-1); Eosinophil# 0.14 X10^3/uL; Eosinophils% 1.5 % (0-5); Hematocrit 43.1 % (37-47); Lymphocyte # 2.13 X10^3/ul (0.83-4.51); Lymphocyte % 22.4 % (19-41); Mean Corp Hgb Conc 32.5 g/dL (32-36); Mean Corpuscular Hgb 29.5 pg (27.0-32.0); Mean Corpuscular Volume 90.7 fL (81-99); Mean Platelet Vol. 9.4 fl (6.2-12.0); Monocyte# 0.44 X10^3/uL; Monocyte% 4.6 % (0-10); NRBC Flagged by Analyzer 0 % (0-5); Neutrophil % 70.7 % (47-70); Platelet Count 304 K/mm3 (150-450); RBC Distribution Width CV 13.1 % (11.6-14.6); RBC Distribution Width SD 43.5 fl (35.1-43.9); Red Blood Count 4.75 M/mm3 (4.2-5.4); White Blood Count 9.5 K/mm3 (4.4-11.0)
[2021-05-23 18:36] LABS: ALB/GLOB Ratio 0.9 RATIO (0.9-2.4); AST(SGOT) 22 U/L (15-37); Alanine Aminotransfer ALT/SGPT 38 U/L (13-56); Albumin, Serum 3.7 g/dL (3.2-5.0); Alkaline Phosphatase 85 U/L (45-117); Anion Gap 5 (5-15); BUN 11 mg/dL (7-18); Chloride 104 mmol/L (98-107); EST Glomerular Filtration Rate 57 mL/min (>60); Est Glom Filt Rate - Afr Amer 69 mL/min (>60); Free T3 2.1 pg/mL (2.18-3.98); Globulin 4.1 g/dL (2.2-4.2); Glucose 80 mg/dL (74-106); Potassium 3.4 mmol/L (3.5-5.1); Protein, Total 7.8 g/dL (6.4-8.2); Sodium Level 138 mmol/L (136-145); T4 Free Direct 0.81 ng/dL (0.76-1.46); Thyroid Stim Hormone (TSH) 3.89 uIU/mL (0.358-3.74)
== END ==
PROVIDERS: PCP Family Medicine; Visit Provider Family Medicine
DX: E03.9 Hypothyroidism, unspecified (principal)
CPT/HCPCS: 36415; 80053; 84439; 84443; 84481; 85025

== ENCOUNTER 2021-08-22 15:54 | Outpatient (CLI) | payer BC, SELFPAY ==
[2021-08-22 18:44] LABS: Anion Gap 8 (5-15); BUN 12 mg/dL (7-18); BUN/Creat Ratio 11.4 RATIO (10-20); Calcium,Total 9.5 mg/dL (8.5-10.1); Chloride 101 mmol/L (98-107); Creatinine, Serum 1.05 mg/dL (0.55-1.02); EST Glomerular Filtration Rate 60 mL/min (>60); Est Glom Filt Rate - Afr Amer 73 mL/min (>60); Glucose 87 mg/dL (74-106); Potassium 3.8 mmol/L (3.5-5.1); Sodium Level 136 mmol/L (136-145); T4 Free Direct 0.95 ng/dL (0.76-1.46); Thyroid Stim Hormone (TSH) 2.59 uIU/mL (0.358-3.74)
== END 2021-08-22 23:59 | disposition short-term general hospital (02) ==
LOC: MFPLAB 15:56
PROVIDERS: PCP Family Medicine; Visit Provider Family Medicine
DX: E03.9 Hypothyroidism, unspecified (principal); E87.6 Hypokalemia
CPT/HCPCS: 36415; 80048; 84439; 84443

== ENCOUNTER → 2022-04-20 | Outpatient (CLI) | payer BC, SELFPAY ==
[2022-04-29 10:27] LABS: HPV APTIMA, High Risk Negative (Negative)
== END | disposition home or self-care (01) ==
LOC: LABSPEC 16:43
PROVIDERS: PCP Family Medicine; Referring Provider Nurse Practitioner Women's Health; Visit Provider Nurse Practitioner Women's Health
DX: Z12.4 Encounter for screening for malignant neoplasm of cervix (principal)
CPT/HCPCS: 87624; 88175; G0145

== ENCOUNTER → 2022-04-27 | Outpatient (CLI) | payer BC, SELFPAY ==
--- NOTE | 2022-04-27 16:33 | BI_ITS ---
MAMMOGRAPHY - BILATERAL SCREENING REASON FOR EXAM: Female, 46 years old. Routine annual screening examination. PERTINENT HISTORY: Non-contributory. TECHNIQUE: Digital bilateral breast tamara (3D mammographic acquisition) in the CC and MLO projections. 2-D mediolateral oblique (MLO) and craniocaudad (CC) views of both breasts were obtained. CAD: Full Field Digital Mammography with Computer Added Detection was performed. COMPARISON: Comparison is made with prior study dated 08/28/2020 and 01/04/2019. FINDINGS: Breast Composition: The breasts are heterogeneously dense, which may obscure small masses. There are no dominant masses or suspicious calcifications. Stable small benign-appearing bilateral axillary lymph nodes. No other significant abnormalities are identified. There has been no significant change since the prior study. BI/SCRN MAMM (CAD)W/TAMARA BILAT IMPRESSION: Stable bilateral screening mammogram. Yearly follow-up mammogram recommended. (A) ASSESSMENT CATEGORY: BIRADS Category 2: Benign. A letter regarding these results will be sent to the patient by the facility within 30 days. Approximately 10% of breast cancers are not detected by mammography. A normal mammogram should not delay biopsy of a clinically suspicious abnormality. [id number] Electronically Signed: Pito Hagan MD at 8:23 EDT ,
== END | disposition home or self-care (01) ==
LOC: OPBI 04-28 07:09
PROVIDERS: PCP Family Medicine; Visit Provider Nurse Practitioner Women's Health
DX: Z12.31 Encounter for screening mammogram for malignant neoplasm of breast (principal)
CPT/HCPCS: 77063; 77067

== ENCOUNTER 2022-07-13 07:57 | Day surgery (SDC) | payer BC, SELFPAY ==
--- NOTE | 2022-07-13 | COLBX_PTH ---
PATIENT: PAM MENDEZ LOC: EN U#:[id number] AGE/SX: 46/F ROOM: RE07/13/[address]: Dr. Jesus Ellis MD : 1975 BED: DIS: 07/13/2022 SPEC #: [id number] RECD: 07/13/22 13:10 STATUS: KEITH ERICKA #: [id number] DANE: 07/13/22 00:[address]: Jesus Ellis DEPT: SURGICAL PATHOLOGY RECD BY: Ramesh Tony ENTERED: 07/13/22 13:10 SP TYPE: COLON BX OTHR DR: Dr. Pk mAor MD Tissues: Transverse colon Procedures: Surgery Specimen Level IV HEADER OPERATION: Colonoscopy ? open access (MAC), biopsy PRE-OP DIAGNOSIS: Screening TISSUE SUBMITTED: Distal transverse polyp biopsy MICROSCOPIC DIAGNOSIS Distal transverse colon polyp, biopsy: Fragments of tubular adenoma. MATTHEW:kristen 07/14/2022 MICROSCOPIC DESCRIPTION Slides are reviewed. GROSS DESCRIPTION Received in fixative is one container labeled with the patient's name and designated distal transverse polyp. The specimen consists of multiple irregular fragments of light hernandez soft tissue that in aggregate measure 1 x 0.3 x 0.1 cm. The specimen is totally submitted in one cassette. / SJ:kristen 07/13/2022 TC:1 CPT: 69899
[2022-07-13] MEDS: Lactated Ringers 1,000 ML 15 ML IV (08:05)
[2022-07-13 08:22] VITALS: BP 144/89; PULSE 81; RESP 17; TEMP 36.4; O2SAT 94; BMI 43.4
--- NOTE | 2022-07-13 08:35 | H&P.OPEN ---
[facility] - General General Date of Service: 07/13/22 Chief Complaint: Colon cancer screening HPI Narrative PAM MENDEZ, is a 46 F who presents for open access colon cancer screening. She confirms a history relayed through her open access screening questionnaire. She denies any prior history of colonoscopy. She has no personal history of inflammatory bowel disease or diverticulitis. She reports that her bowel movements have been normal and she does not frequently experience either diarrhea or constipation. Further she has not noticed any bleeding with bowel movements. Lastly, patient is unaware of any family history of colon cancer, but her family history is admittedly incomplete as she is adopted. [facility] Medical History Anxiety CPAP (continuous positive airway pressure) dependence Depression Depression with anxiety Excessive sweating Gastric reflux History of echocardiogram Hypertension Leg cramps Metabolic syndrome MVP (mitral valve prolapse) Non-smoker Sleep apnea Thyroid disease Home Medications lisinopril 10 mg tablet 10 mg PO DAILY BP 06/28/18 [History Last Taken 09/14/20] metformin 500 mg tablet 500 mg PO DAILY METABOLIC SYNDROME 06/28/18 [History Last Taken 11/26/18] bupropion HCl 300 mg 24 hr tablet, extended release 300 mg PO DAILY ANXIETY 11/26/18 [History Last Taken 09/14/20] cetirizine 10 mg tablet (Zyrtec) 10 mg PO DAILY 08/23/20 [History Last Taken Unknown] glycopyrrolate 2 mg tablet 2 mg PO DAILY 08/23/20 [History Last Taken Unknown] cholecalciferol (vitamin D3) 50 mcg (2,000 unit) tablet 50 mcg PO DAILY 09/09/20 [History Last Taken Unknown] aripiprazole 5 mg tablet 5 mg PO QHS 04/20/22 [History Last Taken Unknown] levonorgestrel 20.4 mcg/24 hrs (8 yrs) 52 mg intrauterine device (Liletta) 1 device intrauterine ONCE 04/20/22 [History Last Taken Unknown] levothyroxine 25 mcg tablet 50 mcg PO DAILY THYROID 04/20/22 [History Last Taken Unknown] Allergy/AdvReac Type Severity Reaction Status Date / Time ampicillin Allergy Shortness Verified 07/13/22 08:21 of breath Sulfa (Sulfonamide Allergy Rash Verified 07/13/22 08:21 Antibiotics) Surgical History S/P carpal tunnel release s/p decompression S/P dilation and curettage Social History adopted: Yes Smoking Status: Never smoker alcohol intake: never substance use type: does not use caffeine: Yes what type of physical activity do you participate in: none seatbelt use: always do you feel safe at home: Yes additional social history: Past Medical/Surgical History Planned Operation Planned Operative Procedure/s: COLONOSCOPY S.O.S: No Previous Hospitalizations/Surgeries HX Hospitalizations: No HX of Surgeries: 2010 cervical fusion c4-5 2009 carpal tunnel right 2000 suction d&c 2002 gallbladder Any Problems With Anesthesia: No You/Your Family Experience Fever (Hyperthermia) With Anes: No Cholinesterase deficiency: No Cardiovascular Hx Chest Pain within Last 2 months: No Hx of Irregular Heartbeat and/or Afib: No (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) Hx Heart Attack: No Hx Congestive Heart Failure: No Hx Rheumatic Fever: No Hx Hypertension: Yes Hx Internal Defibrillator: No Hx Pacemaker: No Hx Cardiac Catheterization: No Hx Cardiac Surgery/Stents/Etc.: No Hx Stress Test: No Hx Pain in Legs when Walking/Leg Cramps: No Respiratory Chronic Cough: No HX of Shortness of Breath: Yes (slightly sob with 2 flights of stairs) Hoarseness: No Hx Chronic Obstructive Pulmonary Disease (COPD): No Hx Asthma: No Hx Emphysema: No Hx Sleep Apnea: Yes CPAP: Yes BIPAP: No Hx Respiratory Tract Infection/Cold (presently): No Result (for STOP score): Positive Hx Smoking: No Smoking Status: Never smoker Gastrointestinal Hx Gastroesophageal Reflux: No (occ heartburn tums prn) Hx Gastrointestinal Disorders: No Hx Gastrointestinal Bleed: No Hx Ulcer: No Hx Hiatal Hernia: No Difficulty Chewing/Swallowing: No Special diet followed at home: No Hx Unplanned Weight Loss of 20#: No HX Unplanned Weight Gain of 20#: No Neurological Hx Seizures: No HX Syncope/Blackout Spells/Unconsciousness: No Hx Transient Ischemic Attacks (TIA): No Hx Multiple Sclerosis: No Hx Parkinson's Disease: No Hx Head/Neck Injury: Yes (cervical fusion /optic neuritis hx) Hx Headaches: Yes (occ) Hx Back Injury/Pain: No Recent Onset of Speech Difficulty: No Restless Legs: Yes Does patient have nerve stimulator: No Blood Disorder Hx Leukemia: No Bleeding Tendencies: No Hx Deep Vein Thrombosis: No Hx High Cholesterol: No Blood Transmitted Disease: No Hx Hepatitis: No Hx Cirrhosis: No Hx Anemia: No Hx Blood Disorders: No Reproduction : No Is Patient Lactating: No Hx Hysterectomy: No Hx Tubal Ligation: No Are You Post Menopause: No Genitourinary Hx Renal Disease: No Musculoskeletal Hx Arthritis: No Hx Rheumatoid Arthritis: No Hx Gout: No Recent Onset of an Orthopedic Problem: No Endocrine Hx Diabetes: No (metabolic syndrome/uses metformin) Thyroid Disease: Yes (on med) Hx Steroid Therapy: No Psycho/Social Hx Substance Use: No Hx Alcohol Use: No Hx Anxiety: Yes (on med) Hx Depression: Yes (on med) Hx Dementia: No Miscellaneous Hx Cancer: No Recent Exposure to Contagious Disease: No Hx of C-Diff: No Any Loose Teeth: No Allergies ampicillin Allergy (Verified 07/13/22 08:21) Shortness of breath Sulfa (Sulfonamide Antibiotics) Allergy (Verified 07/13/22 08:21) Rash Discharge Is Pt Admitted From a Custodial, or a Care Home: No Who Could Help: MOM After D/C, Where Do you Plan to Go: Return Home Vital Signs Vital Signs Vital Signs: 07/13/22 08:22 07/13/22 08:22 Temperature 97.6 F L Temperature Source Temporal Pulse Rate 81 Respiratory Rate 17 Respiratory Pattern Normal Blood Pressure 144/89 H Blood Pressure Mean 107 Blood Pressure Source Monitor Blood Pressure Position Semi-Fowlers Blood Pressure Location Right Arm Pulse Ox 94 Oxygen Delivery Method Room Air Weight Weight: 261 lb 0.437 oz Body Mass Index (BMI) 43.4 Physical Exam Const alert, oriented x3 and no apparent distress General Appearance: cooperative Nutritional Appearance: obese Resp normal respiratory effort GI GI Narrative: No scars, nondistended, soft, nontender to palpation x4 quadrants Assessment & Plan Assessment/Plan (1) Encounter for screening for malignant neoplasm of colon: PLAN: This is a 46-year-old female who presents for routine screening colonoscopy. And as far as patient is able to provide a family history given her adopted status, she appears to be at average risk for colon cancer. She confirms that she completed her prep successfully and her output is now clear. Therefore we will proceed to the endoscopy suite for screening colonoscopy under local MAC as scheduled. Surgery Risks - Colonoscopy Risks Include but are not Limited To: Risks include but are not limited to: Bleeding, perforation requiring further surgery, inability to complete colonoscopy requiring barium enema.
[2022-07-13 09:55] VITALS: BP 114/80; BP 123/75; BP 144/89; PULSE 74; PULSE 78; RESP 18; TEMP 36.8; O2SAT 98
--- NOTE | 2022-07-13 09:58 | OP.CCLET_ITS ---
07/13/2022 Pk Amor [address] [place] [address] Re : Colonoscopy procedure for Amie Ariasison Dear Dr. Amor This procedure was performed on June. My impressions and recommendations are as follows: Impressions : - One 5 mm polyp in the distal transverse colon. Biopsied. - Diverticulosis in the sigmoid colon, in the descending colon and in the proximal transverse colon. No specimens collected. - The examination was otherwise normal on direct and retroflexion views. Recommendations : - Discharge patient to home (via wheelchair). - High fiber diet today. - Continue present medications. - Await pathology results. - Repeat colonoscopy date to be determined after pending pathology results are reviewed for surveillance based on pathology results. - Telephone my office for pathology results in 1 week. My findings are described in the full procedure note, which is enclosed. If I can be of further assistance, please feel free to contact me at Doctor phone number(s): , Work: . Sincerely, Jesus Ellis MD 07/13/2022 9:58:28 AM This report has been signed electronically.
--- NOTE | 2022-07-13 09:58 | OP.COLON_ITS ---
Patient Name: Amie Barajas Procedure Date: 07/13/2022 8:35 AM Date of : 1975 Age: 46 Procedure: Colonoscopy Indications: Screening for colorectal malignant neoplasm Providers: Jesus Ellis MD Referring MD: Jesus Ellis MD Medicines: See the Anesthesia note for documentation of the administered medications Patient Profile: Refer to note in patient chart for documentation of history and physical. Last Colonoscopy: none. The patient's first colonoscopy is today. Complications: No immediate complications. Estimated blood loss: Minimal. Procedure: Pre-Anesthesia Assessment: - The heart rate, respiratory rate, oxygen saturations, blood pressure, adequacy of pulmonary ventilation, and response to care were monitored throughout the procedure. After I obtained informed consent, the scope was passed under direct vision. Throughout the procedure, the patient's blood pressure, pulse, and oxygen saturations were monitored continuously. The pediatric colonoscope was introduced through the anus and advanced to the cecum, identified by the ileocecal valve. The colonoscopy was somewhat difficult due to a tortuous colon. Successful completion of the procedure was aided by straightening and shortening the scope to obtain bowel loop reduction. The patient tolerated the procedure well. The quality of the bowel preparation was adequate to identify polyps. Scope In: 9:21:30 AM Scope Withdrawal Time 0 hours 13 minutes 51 seconds Scope Out: 9:51:25 AM Total Procedure Duration Time 0 hours 29 minutes 55 seconds Findings: A 5 mm polyp was found in the distal transverse colon. The polyp was semi-sessile. Biopsies were taken with a cold forceps for histology. Estimated blood loss was minimal. Many medium-mouthed diverticula were found in the sigmoid colon, descending colon and proximal transverse colon. No biopsies or other specimens were collected for this exam. The exam was otherwise without abnormality on direct and retroflexion views. Impression: - One 5 mm polyp in the distal transverse colon. Biopsied. - Diverticulosis in the sigmoid colon, in the descending colon and in the proximal transverse colon. No specimens collected. - The examination was otherwise normal on direct and retroflexion views. Recommendation: - Discharge patient to home (via wheelchair). - High fiber diet today. - Continue present medications. - Await pathology results. - Repeat colonoscopy date to be determined after pending pathology results are reviewed for surveillance based on pathology results. - Telephone my office for pathology results in 1 week. Procedure Code(s): --- Professional --- 91044, Colonoscopy, flexible; with biopsy, single or multiple Diagnosis Code(s): --- Professional --- Z12.11, Encounter for screening for malignant neoplasm of colon D12.3, Benign neoplasm of transverse colon (hepatic flexure or splenic flexure) K57.30, Diverticulosis of large intestine without perforation or abscess without bleeding CPT copyright 2017 [employer]. All rights reserved. The codes documented in this report are preliminary and upon chef passenger vessel review may be revised to meet current compliance requirements. Jesus Ellis MD 07/13/2022 9:58:28 AM This report has been signed electronically. Number of Addenda: 0 Note Initiated On: 07/13/2022 8:35 AM
[2022-07-13 10:00] VITALS: BP 123/75; BP 144/89; PULSE 70; RESP 18; O2SAT 98
[2022-07-13 10:05] VITALS: BP 124/67; BP 144/89; PULSE 70; RESP 18; O2SAT 100
[2022-07-13 10:11] VITALS: BP 110/70; BP 144/89; PULSE 68; RESP 418; TEMP 36.6; O2SAT 99
[2022-07-13 10:25] VITALS: BP 144/89
== END 2022-07-13 10:50 | disposition home or self-care (01) ==
LOC: EN 07:57 → AC 07:59
PROVIDERS: PCP Family Medicine; Referring Provider Surgery; Visit Provider Surgery
PROC: 0DJD8ZZ Inspection of Lower Intestinal Tract, Via Natural or Artificial Opening Endoscopic (ICD-10-PCS; CPT 45378; principal; 2022-07-13 08:55)
DX: Z12.11 Encounter for screening for malignant neoplasm of colon (principal); K57.30 Diverticulosis of large intestine without perforation or abscess without bleeding; I10 Essential (primary) hypertension; F41.8 Other specified anxiety disorders; D12.3 Benign neoplasm of transverse colon; Z99.89 Dependence on other enabling machines and devices
CPT/HCPCS: 45380; 88305; J7120; J2405

== ENCOUNTER → 2022-12-19 | Outpatient (CLI) | payer BC, SELFPAY ==
[2022-12-19 17:43] LABS: Absolute Lymphocyte Count 2.28 X10^3/uL (0.83-4.51); Basophil# 0.04 X10^3/uL; Basophil% 0.4 % (0-1); Eosinophil# 0.18 X10^3/uL; Eosinophils% 1.8 % (0-5); Hemoglobin 14.8 g/dL (12.0-15.0); Lymphocyte # 2.28 X10^3/ul (0.83-4.51); Lymphocyte % 22.7 % (19-41); Mean Corp Hgb Conc 32.9 g/dL (32-36); Mean Corpuscular Hgb 29.5 pg (27.0-32.0); Mean Corpuscular Volume 89.6 fL (81-99); Mean Platelet Vol. 9.4 fl (6.2-12.0); Monocyte# 0.51 X10^3/uL; Monocyte% 5.1 % (0-10); NRBC Flagged by Analyzer 0 % (0-5); Neutrophil # 6.99 X10^3/uL (2.7-7.7); Neutrophil % 69.5 % (47-70); Platelet Count 315 K/mm3 (150-450); RBC Distribution Width CV 13.2 % (11.6-14.6); RBC Distribution Width SD 43.5 fl (35.1-43.9); Red Blood Count 5.02 M/mm3 (4.2-5.4); White Blood Count 10.1 K/mm3 (4.4-11.0)
[2022-12-19 18:21] LABS: AST(SGOT) 32 U/L (15-37); Alanine Aminotransfer ALT/SGPT 48 U/L (13-56); Albumin, Serum 3.9 g/dL (3.2-5.0); Alkaline Phosphatase 84 U/L (45-117); Anion Gap 8 (5-15); BUN 16 mg/dL (7-18); BUN/Creat Ratio 14.2 RATIO (10-20); Calcium,Total 9.1 mg/dL (8.5-10.1); Chloride 104 mmol/L (98-107); Creatinine, Serum 1.13 mg/dL (0.55-1.02); EST Glomerular Filtration Rate 55 mL/min (>60); Est Glom Filt Rate - Afr Amer 66 mL/min (>60); Globulin 3.8 g/dL (2.2-4.2); Glucose 81 mg/dL (74-106); Potassium 3.9 mmol/L (3.5-5.1); Protein, Total 7.7 g/dL (6.4-8.2); Sodium Level 138 mmol/L (136-145); T4 Free Direct 0.86 ng/dL (0.76-1.46); Thyroid Stim Hormone (TSH) 3.74 uIU/mL (0.358-3.74)
[2022-12-19 19:35] LABS: Microalbumin,Random Urine 24.2 mg/L (NO RANGE EST.)
[2022-12-21 14:09] LABS: PROEL- A/G Ratio 1.2 (0.7-1.7); PROEL- Albumin 3.9 g/dL (2.9-4.4); PROEL- Alpha-1 Globulin 0.3 g/dL (0.0-0.4); PROEL- Alpha-2 Globulin 0.9 g/dL (0.4-1.0); PROEL- Beta Globulin 1.2 g/dL (0.7-1.3); PROEL- Gamma Globulin 0.9 g/dL (0.4-1.8); PROEL- Globulin, Total 3.3 g/dL (2.2-3.9); PROEL- TOTAL PROTEIN 7.2 g/dL (6.0-8.5)
== END | disposition home or self-care (01) ==
LOC: MFPLAB 16:18
PROVIDERS: PCP Family Medicine; Visit Provider Family Medicine
DX: R53.83 Other fatigue (principal); E03.9 Hypothyroidism, unspecified; I10 Essential (primary) hypertension
CPT/HCPCS: 36415; 80053; 82043; 82570; 84165; 84439; 84443; 84481; 85025

== ENCOUNTER → 2023-01-29 | Outpatient (CLI) | payer OTHER, SELFPAY ==
[2023-01-29 13:11] LABS: Anion Gap 5 (5-15); BUN 11 mg/dL (7-18); BUN/Creat Ratio 10.2 RATIO (10-20); Calcium,Total 8.9 mg/dL (8.5-10.1); Chloride 106 mmol/L (98-107); Creatinine, Serum 1.08 mg/dL (0.55-1.02); EST Glomerular Filtration Rate 58 mL/min (>60); Est Glom Filt Rate - Afr Amer 70 mL/min (>60); Free T3 2.1 pg/mL (2.18-3.98); Glucose 109 mg/dL (74-106); Potassium 4.1 mmol/L (3.5-5.1); Sodium Level 139 mmol/L (136-145); T4 Free Direct 0.91 ng/dL (0.76-1.46); Thyroid Stim Hormone (TSH) 1.97 uIU/mL (0.358-3.74)
== END | disposition home or self-care (01) ==
LOC: MFPLAB 11:22
PROVIDERS: PCP Family Medicine; Visit Provider Family Medicine
DX: E03.9 Hypothyroidism, unspecified (principal)
CPT/HCPCS: 36415; 80048; 84439; 84443; 84481

== ENCOUNTER → 2024-02-08 | Outpatient (CLI) | payer OTHER, SELFPAY ==
[2024-02-08 15:18] LABS: Absolute Neutrophil Count 5.2 X10^3/uL (2.0-7.7); Basophil# 0.06 X10^3/uL; Basophil% 0.8 % (0-1); Eosinophil# 0.21 X10^3/uL; Eosinophils% 2.7 % (0-5); Hemoglobin 14.9 g/dL (12.0-15.0); Lymphocyte % 22.1 % (19-41); Mean Corp Hgb Conc 32.4 g/dL (32-36); Mean Corpuscular Hgb 28.5 pg (27.0-32.0); Mean Corpuscular Volume 88.1 fL (81-99); Mean Platelet Vol. 9.4 fl (6.2-12.0); Monocyte# 0.43 X10^3/uL; Monocyte% 5.6 % (0-10); NRBC Flagged by Analyzer 0 % (0-5); Neutrophil # 5.24 X10^3/uL (2.7-7.7); Platelet Count 307 K/mm3 (150-450); RBC Distribution Width CV 13.2 % (11.6-14.6); RBC Distribution Width SD 42.5 fl (35.1-43.9); Red Blood Count 5.22 M/mm3 (4.2-5.4); White Blood Count 7.7 K/mm3 (4.4-11.0)
[2024-02-08 15:50] LABS: AST(SGOT) 63 U/L (15-37); Alanine Aminotransfer ALT/SGPT 81 U/L (13-56); Albumin, Serum 3.9 g/dL (3.2-5.0); Alkaline Phosphatase 83 U/L (45-117); Anion Gap 8 (5-15); BUN 11 mg/dL (7-18); BUN/Creat Ratio 11.3 RATIO (10-20); Calcium,Total 9.4 mg/dL (8.5-10.1); Chloride 106 mmol/L (98-107); Creatinine, Serum 0.97 mg/dL (0.55-1.02); EST Glomerular Filtration Rate 65 mL/min (>60); Est Glom Filt Rate - Afr Amer 78 mL/min (>60); Free T3 2.6 pg/mL (2.18-3.98); Globulin 3.9 g/dL (2.2-4.2); Glucose 118 mg/dL (74-106); Magnesium 2.4 mg/dL (1.6-2.6); Potassium 4.3 mmol/L (3.5-5.1); Protein, Total 7.8 g/dL (6.4-8.2); Sodium Level 139 mmol/L (136-145); T4 Free Direct 0.76 ng/dL (0.76-1.46); Thyroid Stim Hormone (TSH) 1.98 uIU/mL (0.358-3.74)
== END | disposition home or self-care (01) ==
LOC: MFPLAB 12:05
PROVIDERS: PCP Family Medicine; Visit Provider Family Medicine
DX: E03.9 Hypothyroidism, unspecified (principal); G25.2 Other specified forms of tremor
CPT/HCPCS: 36415; 80053; 82533; 83735; 84439; 84443; 84481; 85025

== ENCOUNTER → 2024-02-21 | Outpatient (CLI) | payer OTHER, SELFPAY ==
--- NOTE | 2024-02-21 08:28 | BI_ITS ---
MAMMOGRAPHY - BILATERAL SCREENING REASON FOR EXAM: Female, 48 years old. Routine annual screening examination. PERTINENT HISTORY: Non-contributory. TECHNIQUE: Digital bilateral breast tamara (3D mammographic acquisition) in the CC and MLO projections. 2-D mediolateral oblique (MLO) and craniocaudad (CC) views of both breasts were obtained. CAD: Full Field Digital Mammography with Computer Added Detection was performed. COMPARISON: Comparison is made with prior study dated April 27, 2022 and August 28, 2020. FINDINGS: Breast Composition: The breasts are heterogeneously dense, which may obscure small masses. There are no dominant masses or suspicious calcifications. Stable fat-containing bilateral axillary lymph nodes. No other significant abnormalities are identified. There has been no significant change since the prior study. BI/SCRN MAMM (CAD)W/TAMARA BILAT IMPRESSION: Stable bilateral screening mammogram. Yearly follow-up mammogram recommended. (A) ASSESSMENT CATEGORY: BIRADS Category 2: Benign. A letter regarding these results will be sent to the patient by the facility within 30 days. Approximately 10% of breast cancers are not detected by mammography. A normal mammogram should not delay biopsy of a clinically suspicious abnormality. [id number] Electronically Signed: Pito Hagan MD at 9:51 EDT ,
== END | disposition home or self-care (01) ==
PROVIDERS: PCP Family Medicine; Referring Provider Nurse Practitioner Family; Visit Provider Nurse Practitioner Family
DX: Z12.31 Encounter for screening mammogram for malignant neoplasm of breast (principal)
CPT/HCPCS: 77063; 77067

== ENCOUNTER → 2024-11-27 | Outpatient (CLI) | payer OTHER, SELFPAY ==
[2024-11-27 11:18] LABS: Absolute Lymphocyte Count 1.66 X10^3/uL (0.83-4.51); Absolute Neutrophil Count 6.4 X10^3/uL (2.0-7.7); Basophil# 0.06 X10^3/uL; Basophil% 0.7 % (0-1); Eosinophils% 2.3 % (0-5); Hematocrit 43.2 % (37-47); Hemoglobin 14.3 g/dL (12.0-15.0); Lymphocyte # 1.66 X10^3/ul (0.83-4.51); Lymphocyte % 18.7 % (19-41); Mean Corp Hgb Conc 33.1 g/dL (32-36); Mean Corpuscular Hgb 28.8 pg (27.0-32.0); Mean Corpuscular Volume 87.1 fL (81-99); Mean Platelet Vol. 9.3 fl (6.2-12.0); Monocyte# 0.44 X10^3/uL; NRBC Flagged by Analyzer 0 % (0-5); Neutrophil # 6.43 X10^3/uL (2.7-7.7); Neutrophil % 72.4 % (47-70); Platelet Count 276 K/mm3 (150-450); RBC Distribution Width SD 41.1 fl (35.1-43.9); Red Blood Count 4.96 M/mm3 (4.2-5.4); White Blood Count 8.9 K/mm3 (4.4-11.0)
[2024-11-27 11:39] LABS: ALB/GLOB Ratio 1.3 RATIO (0.9-2.4); AST(SGOT) 53 U/L (<=31); Alanine Aminotransfer ALT/SGPT 52 U/L (<=34); Albumin, Serum 4.1 g/dL (3.5-5.0); Alkaline Phosphatase 86 U/L (35-104); Anion Gap 13 (5-15); BUN 10 mg/dL (4-19); BUN/Creat Ratio 11.7 RATIO (10-20); Calcium,Total 9.4 mg/dL (7.6-11.0); Carbon Dioxide 24.1 mmol/L (21.0-32.0); Chloride 98 mmol/L (98-108); Creatinine, Serum 0.88 mg/dL (0.70-1.20); EST Glomerular Filtration Rate 81 (>60); Globulin 3.2 g/dL (2.2-4.2); Glucose 150 mg/dL (70-99); Potassium 4.4 mmol/L (3.3-5.1); Protein, Total 7.3 g/dL (5.9-8.4); Sodium Level 135 mmol/L (133-145); Total Bilirubin 0.33 mg/dL (0.00-1.30)
[2024-11-27 11:40] LABS: Hemoglobin A1c 7.6 % (<=5.6)
== END | disposition home or self-care (01) ==
LOC: MFPLAB 08:13
PROVIDERS: PCP Family Medicine; Referring Provider Family Medicine; Visit Provider Family Medicine
DX: H53.9 Unspecified visual disturbance (principal)
CPT/HCPCS: 36415; 80053; 83036; 84443; 85025; 87086; 87088

== ENCOUNTER → 2025-02-06 | Outpatient (CLI) | payer OTHER, SELFPAY ==
[2025-02-06 12:10] LABS: Hematocrit 45.1 % (37-47); Hemoglobin 14.8 g/dL (12.0-15.0); Immature Granulocytes Count 0.010 X10^3/uL (0.0-0.0); Mean Corp Hgb Conc 32.8 g/dL (32-36); Mean Corpuscular Volume 87.4 fL (81-99); Mean Platelet Vol. 9.7 fl (6.2-12.0); NRBC Flagged by Analyzer 0 % (0-5); Platelet Count 270 K/mm3 (150-450); RBC Distribution Width CV 12.9 % (11.6-14.6); RBC Distribution Width SD 41.1 fl (35.1-43.9); Red Blood Count 5.16 M/mm3 (4.2-5.4); White Blood Count 6.5 K/mm3 (4.4-11.0)
[2025-02-06 12:59] LABS: AST(SGOT) 45 U/L (<=31); Alanine Aminotransfer ALT/SGPT 56 U/L (<=34); Albumin, Serum 4.6 g/dL (3.5-5.0); Alkaline Phosphatase 86 U/L (35-104); Anion Gap 14 (5-15); BUN 14 mg/dL (4-19); BUN/Creat Ratio 15.5 RATIO (10-20); Calcium,Total 9.8 mg/dL (7.6-11.0); Carbon Dioxide 22.5 mmol/L (21.0-32.0); Chloride 101 mmol/L (98-108); Globulin 3.2 g/dL (2.2-4.2); Glucose 100 mg/dL (70-99); Potassium 4.1 mmol/L (3.3-5.1)
== END | disposition home or self-care (01) ==
LOC: MFPLAB 09:17
PROVIDERS: PCP Family Medicine; Referring Provider Family Medicine; Visit Provider Family Medicine
DX: E11.65 Type 2 diabetes mellitus with hyperglycemia (principal)
CPT/HCPCS: 36415; 80053; 83036; 85025

== ENCOUNTER → 2025-02-27 | Outpatient (CLI) | payer OTHER, SELFPAY ==
--- NOTE | 2025-02-27 08:09 | BI_ITS ---
EXAM: SCRN MAMM (CAD)W/TAMARA BILAT DATE: 02/27/2025 CLINICAL HISTORY: F, Age 49 y/o , SCREEN TECHNIQUE: SCRN MAMM (CAD)W/TAMARA BILAT COMPARISON: Prior exam(s) dated 02/21/2024, 04/27/2022, 08/28/2020. FINDINGS: TISSUE DENSITY: The breasts are heterogeneously dense, which may obscure small masses. The mammogram demonstrates that the patient has dense breasts. Supplemental screening with whole breast ultrasound or MRI may be considered for further evaluation. Bilateral Breast Mammographic Findings: No significant masses, calcifications or other abnormalities are identified. BI/SCRN MAMM (CAD)W/TAMARA BILAT IMPRESSION: There is no mammographic evidence of malignancy. OVERALL FINAL ASSESSMENT BI-RADS 1: NEGATIVE. RECOMMENDATION: Routine annual follow-up in 1 Year A letter with findings and recommendations will be mailed to the patient. Reading Location: [id number]
--- NOTE | 2025-02-27 08:09 | BI_ITS ---
EXAM: SCRN MAMM (CAD)W/TAMARA BILAT DATE: 02/27/2025 CLINICAL HISTORY: F, Age 49 y/o , SCREEN TECHNIQUE: SCRN MAMM (CAD)W/TAMARA BILAT COMPARISON: Prior exam(s) dated 02/21/2024, 04/27/2022, 08/28/2020. FINDINGS: TISSUE DENSITY: The breasts are heterogeneously dense, which may obscure small masses. The mammogram demonstrates that the patient has dense breasts. Supplemental screening with whole breast ultrasound or MRI may be considered for further evaluation. Bilateral Breast Mammographic Findings: No significant masses, calcifications or other abnormalities are identified. BI/SCRN MAMM (CAD)W/TAMARA BILAT IMPRESSION: There is no mammographic evidence of malignancy. OVERALL FINAL ASSESSMENT BI-RADS 1: NEGATIVE. RECOMMENDATION: Routine annual follow-up in 1 Year A letter with findings and recommendations will be mailed to the patient. Reading Location: [id number]
== END | disposition home or self-care (01) ==
LOC: OPBI 08:07
PROVIDERS: PCP Family Medicine; Referring Provider Nurse Practitioner Family; Visit Provider Nurse Practitioner Family
DX: Z12.31 Encounter for screening mammogram for malignant neoplasm of breast (principal)
CPT/HCPCS: 77063; 77067